=== PATIENT | male | born 1985 | race Caucasian/White ===

== ENCOUNTER 2017-10-17 20:26 | Emergency (ER) | payer MEDICAID, SELFPAY ==
[2017-10-17 20:28] VITALS: BP 144/97; PULSE 97; RESP 14; TEMP 37.1; O2SAT 95
[2017-10-17] MEDS: oxyCODONE 5 MG Tablet PO ×3 (22:20→23:05)
[2017-10-17 22:34] LABS: Absolute Lymphocyte Count 0.82 X10^3/ul (0.83-4.51); Absolute Neutrophil Count 9.6 X10^3/uL (2.0-7.7); Basophil# 0.02 X10^3/uL; Basophil% 0.2 % (0-1); Hematocrit 47.1 % (40-54); Hemoglobin 15.7 g/dl (13.0-16.5); Lymphocyte # 0.82 X10^3/ul (4.0); Lymphocyte % 7.7 % (19-41); Mean Corp Hgb Conc 33.3 g/gl (32-36); Mean Corpuscular Hgb 30.4 pg (27.0-32.0); Mean Corpuscular Volume 91.1 fL (80-94); Mean Platelet Vol. 10.8 fl (6.2-12.0); Monocyte# 0.18 X10^3/uL; Monocyte% 1.7 % (0-10); Neutrophil # 9.61 X10^3/uL (2.7-7.7); Neutrophil % 90.3 % (47-70); POSITIVE COUNT NO; POSITIVE DIFFERENTIAL NO; POSITIVE MORPHOLOGY NO; Platelet Count 243 K/mm3 (150-450); RBC Distribution Width CV 13.5 % (11.6-14.6); RBC Distribution Width SD 44.9 fl (35.1-43.9); Red Blood Count 5.17 M/mm3 (4.6-6.2); White Blood Count 10.6 K/mm3 (4.4-11.0)
--- NOTE | 2017-10-17 22:50 | ED.DCSUM_ITS ---
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 Patient has had impacted teeth that have been bothering him over the last several months. He was in an oral surgeon today to have them extracted in [place]. The procedure was started with the patient developed right facial swelling and the procedure was aborted. Patient complains of dental pain and continued right sided facial swelling. The swelling has not worsened over the last 8 hours. Family also felt they noted a few petechiae and were concerned about his platelet count. He follows with a specialist in [place] for his John syndrome. Physical Examination: Vital signs are unremarkable. Patient is in no acute distress. Head neck examination reveals right facial swelling over the maxilla only. This appears to be consistent with a hematoma. There is no crepitus noted. Intraoral examination reveals tenderness over his molars. There is no significant gum edema or sign of infection. Heart is regular rate and rhythm. Lung sounds are grossly clear. Abdomen is soft nontender. Test Results: CBC is obtained. Hemoglobin is normal. Platelet count is normal at 243,000. Emergency Department Course and Treatment: Patient was given oxycodone for pain. Test results were discussed with patient and at bedside. He will be given a short course of oxycodone for pain. Treatment Plan: [] Disposition: Discharge Impression: Odontalgia Facial swelling consistent with hematoma John syndrome This note was generated with [employer] dictation software. It may contain incorrect words, spelling, and punctuation that were not noted in review of the chart prior to signing ED Disposition - Plan for ED Patient: Disposition: Home or Assisted Living Chief Complaint: Dental Instructions: ED Tooth Pain Prescriptions: Oxycodone HCl/Acetaminophen [Percocet 5/325] 1 tablet PO Q6H PRN PRN 4 Days #12 tablet PRN Reason: Pain Referrals: Ed Thomas MD [Primary Care Provider] -
[2017-10-17 23:09] VITALS: RESP 16
== END 2017-10-17 23:09 | disposition home or self-care (01) ==
PROVIDERS: Emergency Provider Emergency Medicine; Family Provider Internal Medicine; PCP Internal Medicine
DX: K08.89 Other specified disorders of teeth and supporting structures (principal); R22.0 Localized swelling, mass and lump, head; D69.41 Evans syndrome; M79.7 Fibromyalgia; Z98.818 Other dental procedure status; Z79.899 Other long term (current) drug therapy
CPT/HCPCS: 85025; 99284; A4216

== ENCOUNTER 2018-06-02 20:41 | Emergency (ER) | payer MEDICAID, SELFPAY ==
[2018-06-02 20:42] VITALS: BP 133/86; PULSE 72; RESP 16; TEMP 37.1; O2SAT 97; BMI 21.2
--- NOTE | 2018-06-02 21:12 | US_ITS ---
STUDY: SCROTUM ULTRASOUND REASON FOR EXAM: Male, 32 years old. Pain. TECHNIQUE: Ultrasound evaluation of the scrotum was performed with color Doppler and static caraballo-scale imaging. COMPARISON: None. FINDINGS: RIGHT TESTICLE INTRATESTICULAR: There is a normal size of the right testicle. The right testicle measures 3.6 x 2.6 x 2.5 cm. There is a homogenous echotexture. There is normal arterial and normal venous vascularity. There is no demonstrated right testicular mass or cyst. EXTRATESTICULAR: The epididymis is normal in size. There is normal vascularity of the epididymis. There is no demonstrated epididymal cystic structure. There is no demonstrated hydrocele. There is no demonstrated varicocele. There is no demonstrated extratesticular mass or cyst. LEFT TESTICLE INTRATESTICULAR: There is a normal size of the left testicle. The left testicle measures 4.0 x 2.3 x 2.3 cm. There is a homogenous echotexture. There is normal arterial and normal venous vascularity. There is no demonstrated left testicular mass or cyst. EXTRATESTICULAR: The epididymis is normal in size. There is normal vascularity of the epididymis. There is no demonstrated epididymal cystic structure. There is no demonstrated hydrocele. There is no demonstrated varicocele. There is no demonstrated extratesticular mass or cyst. US/Testicular with Arterial Flow IMPRESSION: Within normal limits bilateral testicles. Electronically Signed: Sue Marlow MD at 23:16 EST Tel , Service support ,
--- NOTE | 2018-06-02 21:13 | CT_ITS ---
STUDY: CT ABDOMEN AND PELVIS WITH CONTRAST REASON FOR EXAM: Male, 32 years old. Testicular pain into abdomen RADIATION DOSAGE (If Supplied By Facility): CTDIvol = ( 10.38 ) mGy, DLP = ( 341.66 ) mGycm TECHNIQUE: Transaxial 3.75 mm images were obtained from the dome of the diaphragm to the symphysis pubis with oral contrast. 100 ml of Isovue 300 contrast was administered. Sagittal and coronal images were reconstructed. Individualized dose optimization techniques were used for this CT. COMPARISON: CT abdomen and pelvis 07/05/2017. 08/30/2016. 02/27/2015. FINDINGS: The visualized lung bases are unremarkable. The visualized portions of the heart are within normal limits. There is low attenuation along the falciform ligament most consistent with focal fatty sparing. There is a stable solitary gallstone position close to the gallbladder neck without wall thickening. Surgically absent spleen. Normal pancreas. Normal bilateral adrenal glands. There is no obstructive uropathy, obstructive renal or ureteral calculi. Subcentimeter cortical low attenuation left anterior mid kidney is stable . Normal visualized stomach. Normal small intestine. Normal colon. The appendix is visualized and appears normal. Normal abdominal aorta. Normal inferior vena cava. Normal retroperitoneum. Normal urinary bladder. Normal abdominal wall. Normal osseous structures. CT/Abdomen/Pelvis WITH Contrast IMPRESSION: There is no obstructive uropathy, obstructive renal or ureteral calculi. Normal appendix. Stable cholelithiasis, splenectomy and presumed left mid renal tiny cyst. Electronically Signed: Kourtney Lira MD at 0:12 EST , Service support ,
[2018-06-02] MEDS: Ondansetron 4 MG/2 ML Vial IV (21:40)
[2018-06-02] MEDS: 0.9% Normal Saline 1,000 ML 1000 ML IV (21:40)
[2018-06-02] MEDS: Morphine 4 MG/ML Syringe IV (21:40)
[2018-06-02 21:41] LABS: Absolute Lymphocyte Count 7.08 X10^3/ul (0.83-4.51); Absolute Neutrophil Count 9.8 X10^3/uL (2.0-7.7); Basophil# 0.13 X10^3/uL; Basophil% 0.7 % (0-1); Eosinophil# 0.05 X10^3/uL; Eosinophils% 0.3 % (0-5); Hemoglobin 13.7 g/dl (13.0-16.5); Lymphocyte # 7.08 X10^3/ul (4.0); Lymphocyte % 37.6 % (19-41); Mean Corp Hgb Conc 33.4 g/gl (32-36); Mean Corpuscular Hgb 30.6 pg (27.0-32.0); Mean Corpuscular Volume 91.5 fL (80-94); Mean Platelet Vol. 9.9 fl (6.2-12.0); Monocyte# 1.74 X10^3/uL; Monocyte% 9.2 % (0-10); Neutrophil # 9.76 X10^3/uL (2.7-7.7); Neutrophil % 51.8 % (47-70); Platelet Count 251 K/mm3 (150-450); RBC Distribution Width CV 14.2 % (11.6-14.6); RBC Distribution Width SD 47.3 fl (35.1-43.9); Red Blood Count 4.48 M/mm3 (4.6-6.2); White Blood Count 18.8 K/mm3 (4.4-11.0)
[2018-06-02 21:43] LABS: Differential Indicated SCAN CRITERIA MET; POSITIVE COUNT NO; POSITIVE DIFFERENTIAL YES; POSITIVE MORPHOLOGY NO
[2018-06-02 21:49] LABS: Bacteria 0 SEEN /hpf (None Seen); Mucous, Urine 0 SEEN /hpf (<or=2+); Red Blood Cells-Urine 0 SEEN /hpf (0-5); White Blood Cells 0 SEEN /hpf (0-5)
[2018-06-02 21:52] LABS: Color, Urine Yellow (Yellow); Glucose, Dipstick Normal (Normal); Ketone-Dipstick Negative (Negative); Leukocyte Esterase-Dipstick Negative /ul (Negative); Nitrite-Dipstick Negative (Negative); Occult Blood-Urine Negative /ul (Negative); Protein-Dipstick Negative (Negative); Specific Gravity, Urine 1.015 (1.002-1.030); Urine Bilirubin Dipstick Negative (Negative); Urine Clarity Sl. Cloudy (Clear); Urine Urobilinogen Normal (Normal)
[2018-06-02 21:58] LABS: Squamous Epithelial Cells - UA 0-5 SEEN /hpf (0-5)
[2018-06-02 22:02] LABS: ALB/GLOB Ratio 1.3 RATIO (0.9-2.4); AST(SGOT) 20 U/L (15-37); Alanine Aminotransfer ALT/SGPT 24 U/L (16-61); Albumin, Serum 3.9 g/dL (3.2-5.0); Alkaline Phosphatase 72 U/L (45-117); Anion Gap 6 (5-15); BUN 15 mg/dL (7-18); BUN/Creat Ratio 17.7 RATIO (10-20); Calcium,Total 8.7 mg/dL (8.5-10.1); Chloride 104 mmol/L (98-107); Creatinine, Serum 0.85 mg/dL (0.70-1.30); EST Glomerular Filtration Rate 111 mL/min (>60); Est Glom Filt Rate - Afr Amer 135 mL/min (>60); Estimated Creatinine Clearance 102.46 ml/min; Glucose 103 mg/dL (74-106); Potassium 3.9 mmol/L (3.5-5.1); Protein, Total 6.9 g/dL (6.4-8.2); Sodium Level 138 mmol/L (136-145)
[2018-06-02 22:20] LABS: Platelet Estimate ADEQUATE (ADEQ)
[2018-06-02 22:21] LABS: Differential Comment SCANNED
[2018-06-02 22:27] LABS: Lactic Acid 1.3 mmol/L (0.4-2.0)
[2018-06-02 23:46] LABS: Chlamydia Trachomatis by PCR Negative (Negative); Neisserai gonorrhoeae by PCR Negative (Negative); Probe Check PASS; Sample Adequacy Control PASS; Specimen Processing Control PASS
--- NOTE | 2018-06-03 00:30 | ED.VISSUMM ---
- ER Visit Summary Date of Service: 06/03/18 Chief Complaint: Testicular pain History of Present Illness: The patient is a 32 M who presents for 1 day of severe pain in the right lower abdomen, back, testicle and thigh. Patient believes the pain is originating from the right testicle, as he felt a pop yesterday in his right groin at onset. It began suddenly while he was having intercourse. He has pain radiating into the right lower abdomen, the right lower back, the rectal layer area, the anterior thigh. Patient has a history of degenerative disc disease, John syndrome, and other autoimmune disorders. He is currently on prednisone. He has history of splenectomy. Patient denies any fever, chest pain, shortness of breath, dysuria, hematuria, frequency. He does have paresthesias in his bilateral legs but denies any weakness in the legs. Physical Examination: Vital signs: afebrile, hemodynamically stable, no hypoxia on room air General: well nourished, well developed, in no distress Skin: warm, dry, no rash, no pallor HEENT: normocephalic and atraumatic; PERRL, EOMI, moist mucous membranes Cardiovascular: regular rate and rhythm without murmurs, no peripheral edema, 2+ pulses all distal extremities Respiratory: No increased work of breathing, lungs are clear to auscultation bilaterally, no rales, rhonchi or wheezing Abdominal: Abdomen is soft, tender in the right lower quadrant, right lower back, right hemiscrotum without swelling or induration, with normoactive bowel sounds, voluntary guarding or rebound, no masses. Normal external genitalia without penile discharge. Normal cremasteric reflex. No hernia noted. MSK: Moves all extremities, no deformities, normal strength Neuro: Awake and alert, oriented ?4. No facial droop, sensation and motor function intact and symmetric Test Results: Abnormal Lab Results 06/02/18 06/02/18 06/02/18 21:32 21:32 21:32 WBC 18.8 H RBC 4.48 L Hgb 13.7 Hct 41.0 MCV 91.5 MCH 30.6 MCHC 33.4 RDW 14.2 RDW Differential 47.3 H Plt Count 251 MPV 9.9 Immature Gran % (Auto) 0.400 Neut % (Auto) 51.8 Lymph % (Auto) 37.6 [place] % (Auto) 9.2 Eos % (Auto) 0.3 Baso % (Auto) 0.7 Absolute Neuts (auto) 9.8 H Absolute Lymphs (auto) 7.08 H Total Counted Not Reportable Differential Comment SCANNED Diff Path Review May foll Platelet Estimate ADEQUATE Sodium 138 Potassium 3.9 Chloride 104 Carbon Dioxide 28.0 Anion Gap 6 BUN 15 Creatinine 0.85 Estim Creat Clear Calc 102.46 Est GFR (MDRD) Af Amer 135 Est GFR (MDRD) Non-Af 111 BUN/Creatinine Ratio 17.7 Glucose 103 Lactic Acid 1.3 Calcium 8.7 Total Bilirubin 0.30 AST 20 ALT 24 Alkaline Phosphatase 72 Total Protein 6.9 Albumin 3.9 Globulin 3.0 Albumin/Globulin Ratio 1.3 Urine Color Urine Clarity Urine pH Ur Specific [place] Urine Protein Urine Glucose (UA) Urine Ketones Urine Occult Blood Urine Nitrite Urine Bilirubin Urine Urobilinogen Ur Leukocyte Esterase Urine RBC Urine WBC Ur Squamous Epith Cells Urine Bacteria Urine Mucus Chlam trachomat DNA PCR N.gonorrhoeae DNA (PCR) 06/02/18 06/02/18 21:44 21:44 WBC RBC Hgb Hct MCV MCH MCHC RDW RDW Differential Plt Count MPV Immature Gran % (Auto) Neut % (Auto) Lymph % (Auto) [place] % (Auto) Eos % (Auto) Baso % (Auto) Absolute Neuts (auto) Absolute Lymphs (auto) Total Counted Differential Comment Diff Path Review Platelet Estimate Sodium Potassium Chloride Carbon Dioxide Anion Gap BUN Creatinine Estim Creat Clear Calc Est GFR (MDRD) Af Amer Est GFR (MDRD) Non-Af BUN/Creatinine Ratio Glucose Lactic Acid Calcium Total Bilirubin AST ALT Alkaline Phosphatase Total Protein Albumin Globulin Albumin/Globulin Ratio Urine Color Yellow Urine Clarity Sl. Cloudy Urine pH 8.0 Ur Specific [place] 1.015 Urine Protein Negative Urine Glucose (UA) Normal Urine Ketones Negative Urine Occult Blood Negative Urine Nitrite Negative Urine Bilirubin Negative Urine Urobilinogen Normal Ur Leukocyte Esterase Negative Urine RBC 0 SEEN Urine WBC 0 SEEN Ur Squamous Epith Cells 0-5 SEEN Urine Bacteria 0 SEEN Urine Mucus 0 SEEN Chlam trachomat DNA PCR Negative N.gonorrhoeae DNA (PCR) Negative Clinical Impression(s) from Imaging Studies Testicular Ultrasound 06/02/18 21:12 IMPRESSION: Within normal limits bilateral testicles. Electronically Signed: Sue Marlow MD at 23:16 EST Tel , Service support , Abdomen/Pelvis CT 06/02/18 21:13 IMPRESSION: There is no obstructive uropathy, obstructive renal or ureteral calculi. Normal appendix. Stable cholelithiasis, splenectomy and presumed left mid renal tiny cyst. Electronically Signed: Kourtney Lira MD at 0:12 EST , Service support , Medications Given Discontinued Medications Sodium Chloride () 1,000 mls @ 1,000 mls/hr IV .Q1H ONE Stop: 06/02/18 22:12 Last Admin: 06/02/18 21:40 Dose: 1,000 mls/hr Morphine Sulfate () 4 mg IV X1 ONE Stop: 06/02/18 21:14 Last Admin: 06/02/18 21:40 Dose: 4 mg Ondansetron HCl (Zofran) 4 mg IV X1 ONE Stop: 06/02/18 21:14 Last Admin: 06/02/18 21:40 Dose: 4 mg Emergency Department Course and Treatment: Patient presents appearing very uncomfortable and is complaining of pain originating from his right testicle, however his examination is more concerning for pain referred to the testicle as well as the lower abdomen and anterior thigh. It seems more of a radicular pain in nature. However given patient's severe abdominal tenderness and voluntary guarding, workup was performed including the abdomen and pelvis with contrast and a scrotal ultrasound. Scrotal ultrasound showed normal blood flow, no masses and no abnormalities. CT abdomen and pelvis showed a normal appendix and no acute process in the abdomen. Patient had a leukocytosis of 18.8, however he recently started prednisone. He showed no signs of anemia or thrombocytopenia. Urine was negative for infection. Lactate normal. GC and Chlamydia were negative. No electrolyte or renal derangements. Patient received morphine and Zofran as well as IV fluids. On reevaluation he was more comfortable. We discussed that his symptoms may be due to his degenerative back disease and seem more radicular in nature. Patient had no rash that would be concerning for zoster. because of this acute severe pain, Patient was given a prescription for Percocet. He is scheduled to receive an MRI of his spine as soon as he gets approval from insurance, and he will follow-up on this on Monday. We discussed red flag symptoms that should cause him to return immediately to the emergency department. Patient felt well enough to go home. He was discharged with his parents. Treatment Plan: [] Disposition: [] Impression: Right lumbosacral radicular pain This note was generated with [employer] dictation software. It may contain incorrect words, spelling, and punctuation that were not noted in review of the chart prior to signing ED Disposition - Plan for ED Patient: Disposition: Home or Assisted Living Chief Complaint: Male Pain/Injury Instructions: ED Back Care Tips Prescriptions: Oxycodone HCl/Acetaminophen [Percocet 5/325] 1 tab PO Q6H PRN PRN 3 Days #12 tab PRN Reason: Pain Referrals: Ed Thomas MD [Primary Care Provider] - 1-2 Days if not improving Additional Instructions: Please follow-up on Monday with your spine doctor to see if you can schedule your MRI. You may use Percocet for severe pain, but do not mix it with gabapentin. If you develop inability to control your bowels or bladder, weakness in your legs, fever, or any changes in your medical condition that concern you, return immediately to the emergency department for another evaluation.
--- NOTE | 2018-06-03 00:37 | ED.DCSUM_ITS ---
- ER Visit Summary Date of Service: 06/03/18 Chief Complaint: Testicular pain History of Present Illness: The patient is a 32 M who presents for 1 day of severe pain in the right lower abdomen, back, testicle and thigh. Patient believes the pain is originating from the right testicle, as he felt a pop ye sterday in his right groin at onset. It began suddenly while he was having intercourse. He has pain radiating into the right lower abdomen, the right lower back, the rectal layer area, the anterior thigh. Patient has a history of degenerative disc disease, John syndrome, and other autoimmune disorders. He is currently on prednisone. He has history of splenectomy. Patient denies any fever, chest pain, shortness of breath, dysuria, hematuria, frequency. He does have paresthesias in his bilateral legs but denies any weakness in the legs. Physical Examination: Vital signs: afebrile, hemodynamically stable, no hypoxia on room air General: well nourished, well developed, in no distress Skin: warm, dry, no rash, no pallor HEENT: normocephalic and atraumatic; PERRL, EOMI, moist mucous membranes Cardiovascular: regular rate and rhythm without murmurs, no peripheral edema, 2+ pulses all distal extremities Respiratory: No increased work of breathing, lungs are clear to auscultation bilaterally, no rales, rhonchi or wheezing Abdominal: Abdomen is soft, tender in the right lower quadrant, right lower back, right hemiscrotum without swelling or induration, with normoactive bowel sounds, voluntary guarding or rebound, no masses. Normal external genitalia without penile discharge. Normal cremasteric reflex. No hernia noted. MSK: Moves all extremities, no deformities, normal strength Neuro: Awake and alert, oriented ?4. No facial droop, sensation and motor function intact and symmetric Test Results: Abnormal Lab Results 06/02/18 06/02/18 06/02/18 21:32 21:32 21:32 WBC 18.8 H RBC 4.48 L Hgb 13.7 Hct 41.0 MCV 91.5 MCH 30.6 MCHC 33.4 RDW 14.2 RDW Differential 47.3 H Plt Count 251 MPV 9.9 Immature Gran % (Auto) 0.400 Neut % (Auto) 51.8 Lymph % (Auto) 37.6 [place] % (Auto) 9.2 Eos % (Auto) 0.3 Baso % (Auto) 0.7 Absolute Neuts (auto) 9.8 H Absolute Lymphs (auto) 7.08 H Total Counted Not Reportable Differential Comment SCANNED Diff Path Review May foll Platelet Estimate ADEQUATE Sodium 138 Potassium 3.9 Chloride 104 Carbon Dioxide 28.0 Anion Gap 6 BUN 15 Creatinine 0.85 Estim Creat Clear Calc 102.46 Est GFR (MDRD) Af Amer 135 Est GFR (MDRD) Non-Af 111 BUN/Creatinine Ratio 17.7 Glucose 103 Lactic Acid 1.3 Calcium 8.7 Total Bilirubin 0.30 AST 20 ALT 24 Alkaline Phosphatase 72 Total Protein 6.9 Albumin 3.9 Globulin 3.0 Albumin/Globulin Ratio 1.3 Urine Color Urine Clarity Urine pH Ur Specific [place] Urine Protein Urine Glucose (UA) Urine Ketones Urine Occult Blood Urine Nitrite Urine Bilirubin Urine Urobilinogen Ur Leukocyte Esterase Urine RBC Urine WBC Ur Squamous Epith Cells Urine Bacteria Urine Mucus Chlam trachomat DNA PCR N.gonorrhoeae DNA (PCR) 06/02/18 06/02/18 21:44 21:44 WBC RBC Hgb Hct MCV MCH MCHC RDW RDW Differential Plt Count MPV Immature Gran % (Auto) Neut % (Auto) Lymph % (Auto) [place] % (Auto) Eos % (Auto) Baso % (Auto) Absolute Neuts (auto) Absolute Lymphs (auto) Total Counted Differential Comment Diff Path Review Platelet Estimate Sodium Potassium Chloride Carbon Dioxide Anion Gap BUN Creatinine Estim Creat Clear Calc Est GFR (MDRD) Af Amer Est GFR (MDRD) Non-Af BUN/Creatinine Ratio Glucose Lactic Acid Calcium Total Bilirubin AST ALT Alkaline Phosphatase Total Protein Albumin Globulin Albumin/Globulin Ratio Urine Color Yellow Urine Clarity Sl. Cloudy Urine pH 8.0 Ur Specific [place] 1.015 Urine Protein Negative Urine Glucose (UA) Normal Urine Ketones Negative Urine Occult Blood Negative Urine Nitrite Negative Urine Bilirubin Negative Urine Urobilinogen Normal Ur Leukocyte Esterase Negative Urine RBC 0 SEEN Urine WBC 0 SEEN Ur Squamous Epith Cells 0-5 SEEN Urine Bacteria 0 SEEN Urine Mucus 0 SEEN Chlam trachomat DNA PCR Negative N.gonorrhoeae DNA (PCR) Negative Clinical Impression(s) from Imaging Studies Testicular Ultrasound 06/02/18 21:12 IMPRESSION: Within normal limits bilateral testicles. Electronically Signed: Sue Marlow MD at 23:16 EST Tel , Service support , Abdomen/Pelvis CT 06/02/18 21:13 IMPRESSION: There is no obstructive uropathy, obstructive renal or ureteral calculi. Normal appendix. Stable cholelithiasis, splenectomy and presumed left mid renal tiny cyst. Electronically Signed: Kourtney Lira MD at 0:12 EST , Service support , Medications Given Discontinued Medications Sodium Chloride () 1,000 mls @ 1,000 mls/hr IV .Q1H ONE Stop: 06/02/18 22:12 Last Admin: 06/02/18 21:40 Dose: 1,000 mls/hr Morphine Sulfate () 4 mg IV X1 ONE Stop: 06/02/18 21:14 Last Admin: 06/02/18 21:40 Dose: 4 mg Ondansetron HCl (Zofran) 4 mg IV X1 ONE Stop: 06/02/18 21:14 Last Admin: 06/02/18 21:40 Dose: 4 mg Emergency Department Course and Treatment: Patient presents appearing very uncomfortable and is complaining of pain originating from his right testicle, however his examination is more concerning for pain referred to the testicle as well as the lower abdomen and anterior thigh. It seems more of a radicular pain in nature. However given patient's severe abdominal tenderness and voluntary guarding, workup was performed including the abdomen and pelvis with contrast and a scrotal ultrasound. Scrotal ultrasound showed normal blood flow, no masses and no abnormalities. CT abdomen and pelvis showed a normal appendix and no acute process in the abdomen. Patient had a leukocytosis of 18.8, however he recently started prednisone. He showed no signs of anemia or thrombocytopenia. Urine was negative for infection. Lactate normal. GC and Chlamydia were negative. No electrolyte or renal derangements. Patient received morphine and Zofran as well as IV fluids. On reevaluation he was more comfortable. We discussed that his symptoms may be due to his degenerative back disease and seem more radicular in nature. Patient had no rash that would be concerning for zoster. because of this acute severe pain, Patient was given a prescription for Percocet. He is scheduled to receive an MRI of his spine as soon as he gets approval from insurance, and he will follow-up on this on Monday. We discussed red flag symptoms that should cause him to return immediately to the emergency department. Patient felt well enough to go home. He was discharged with his parents. Treatment Plan: [] Disposition: [] Impression: Right lumbosacral radicular pain This note was generated with [employer] dictation software. It may contain incorrect words, spelling, and punctuation that were not noted in review of the chart prior to signing ED Disposition - Plan for ED Patient: Disposition: Home or Assisted Living Chief Complaint: Male Pain/Injury Instructions: ED Back Care Tips Prescriptions: Oxycodone HCl/Acetaminophen [Percocet 5/325] 1 tab PO Q6H PRN PRN 3 Days #12 tab PRN Reason: Pain Referrals: Ed Thomas MD [Primary Care Provider] - 1-2 Days if not improving Additional Instructions: Please follow-up on Monday with your spine doctor to see if you can schedule your MRI. You may use Percocet for severe pain, but do not mix it with gabapentin. If you develop inability to control your bowels or bladder, weakness in your legs, fever, or any changes in your medical condition that concern you, return immediately to the emergency department for another evaluation.
[2018-06-03 00:54] VITALS: BP 131/74; PULSE 62; RESP 15; O2SAT 97
[2018-06-04 11:54] LABS: Pathologist Review Reviewed
== END 2018-06-03 00:56 | disposition home or self-care (01) ==
PROVIDERS: Emergency Provider Emergency Medicine; Family Provider Internal Medicine; PCP Internal Medicine
DX: M54.17 Radiculopathy, lumbosacral region (principal); D69.41 Evans syndrome; Z90.81 Acquired absence of spleen; Z79.52 Long term (current) use of systemic steroids
CPT/HCPCS: 74177; 76870; 80053; 81001; 83605; 85025; 87491; 87591; 93976; 96361; 96374; 96375; 99283; J7030; Q9967; A4216; J2405

== ENCOUNTER 2018-06-08 19:08 | Emergency (ER) | payer MEDICAID, SELFPAY ==
[2018-06-08 19:09] VITALS: BP 120/90; PULSE 85; RESP 16; TEMP 37.4; O2SAT 99; BMI 21.1
--- NOTE | 2018-06-08 19:31 | ED.VISSUMM ---
- ER Visit Summary Date of Service: 06/08/18 Chief Complaint: Cough, ear pain History of Present Illness: The patient is a 32 M with cough and congestion for the past 1 week. He reports having right ear aching for the past couple of days. He had increased right ear pain after waking from a nap this afternoon. He has had mild drainage from his right ear today. He does report family members are ill with similar symptoms. Physical Examination: Vital signs significant for temperature 99.4, otherwise unremarkable. Patient sitting upright in bed. He appears ill but not toxic. Head and neck examination reveals left TM to be clear. Right TM reveals a small perforation with pus and air bubbles behind the eardrum. There are a few mild areas of irritation, but no active bleeding. Heart is regular rate and rhythm. Lung sounds are clear. Abdomen is soft and nontender. Test Results: [] Emergency Department Course and Treatment: Patient is treated with Augmentin and a dose of [place]. We discussed possibility of chest x-ray, however antibiotic use to cover his ear will also cover her lungs. We will not subject him to the radiation. He is referred to Dr. Dykes for follow-up. Treatment Plan: [] Disposition: Discharge Impression: Right otitis media with perforation This note was generated with [employer] dictation software. It may contain incorrect words, spelling, and punctuation that were not noted in review of the chart prior to signing ED Disposition - Plan for ED Patient: Disposition: Home or Assisted Living Chief Complaint: Ear Problem Instructions: ED Rupture Eardrum Infec Prescriptions: Hydrocodone Bitart/Apap 5-325 [[place] 5MG-325MG] 1 tablet PO Q4H PRN PRN 2 Days #10 tablet PRN Reason: Pain Amox/Clavulanate Tablet [Augmentin Tablet] 875 mg PO Q12H #20 tablet Referrals: Nick Dykes MD [STAFF PHYSICIAN] - As soon as possible Ed Thomas MD [Primary Care Provider] -
--- NOTE | 2018-06-08 19:33 | DCINST.ED_ITS ---
ED Disposition - Plan for ED Patient: Disposition: Home or Assisted Living Chief Complaint: Ear Problem Instructions: ED Rupture Eardrum Infec Prescriptions: Hydrocodone Bitart/Apap 5-325 [[place] 5MG-325MG] 1 tablet PO Q4H PRN PRN 2 Days #10 tablet PRN Reason: Pain Amox/Clavulanate Tablet [Augmentin Tablet] 875 mg PO Q12H #20 tablet Referrals: Ed Thomas MD [Primary Care Provider] - Nick Dykes MD [STAFF PHYSICIAN] - As soon as possible
[2018-06-08] MEDS: HYDROcodone Bitartrate/Apap 5/325 Tablet PO (19:38)
[2018-06-08] MEDS: Amox/Clavulanate 875 MG Tablet PO (19:38)
--- OUTSIDE RECORDS SUMMARY | 2018-08-03 17:04 | XMS RPT_ITS ---
:1985 Author Organization OHIP Care Team Providers Name Role Phone Carlos Cat Attending Unavailable Ed Thomas Primary Care Unavailable Ed Thomas Primary Care Unavailable Raya Mabry Attending Unavailable Ed Thomas Primary Care Unavailable Renee Kenney Attending Unavailable Ed Thomas Primary Care Unavailable Raya Mabry Attending Unavailable Ed Thomas Primary Care Unavailable Marsha Kim Attending Unavailable ED THOMAS Attending Unavailable BEATA LOJA (BAROMETERS CALIBRATOR) Attending Unavailable KAREN EATON Referring Unavailable KAREN EATON Referring Unavailable PRIETOSHANA KINNEY Attending Unavailable BEATA LOJA (BAROMETERS CALIBRATOR) Referring Unavailable PRIETO, SHANA T Admitting Unavailable PRIETO, SHANA T Attending Unavailable PRIETO, SHANA T Referring Unavailable ANDREW BYRNES (PT) Attending Unavailable WESLEY MEZA Referring Unavailable PRIETO, SHANA Chairez Referring Unavailable KIMBER ANDERSON (PA) Attending Unavailable NEO BANKS Attending Unavailable QUIANA RENDON Attending Unavailable QUIANA RENDON Referring Unavailable BEATA LOJA (BAROMETERS CALIBRATOR) Referring Unavailable ED THOMAS Attending Unavailable PRIETO, SHANA Chairez Admitting Unavailable PRIETO, SHANA T Attending Unavailable WESLEY FERNANDEZ Attending Unavailable KIMBER ANDERSON (PA) Referring Unavailable WESLEY FERNANDEZ Referring Unavailable Bev FERNANDEZ Attending Unavailable Ed Thomas MD Primary Care Unavailable KIMBER ANDERSON Referring Unavailable Bev FERNANDEZ Referring Unavailable Ed Thomas MD Primary Care Unavailable PROBLEMS PROBLEMS DATE TYPE CONDITION / CODE ATTENDING STATUS SOURCE 06/08/2018 Unknown H66.019 - Acute Mabry, Raya Active [facility] suppurative otitis [facility] media with Hospital spontaneous rupture Repository of ear drum, unspecified ear / H66.019(ICD-10) 06/03/2018 Unknown M54.17 - Renee Kenney Active [facility] Radiculopathy, Community lumbosacral region Hospital / M54.17(ICD-10) Repository 06/03/2018 Unknown R10.9 - Unspecified PablitoRenee Active [facility] abdominal pain / Community R10.9(ICD-10) Hospital Repository 12/12/2017 Active Unspecified NA Active [facility] abdominal pain / Clinic Main R10.9(ICD-10) [facility] Repository 12/12/2017 Active Nausea / NA Active [facility] R11.0(ICD-10) Clinic Main [place] [facility] Repository 12/12/2017 Active Left upper quadrant NA Active [facility] pain / Clinic Main R10.12(ICD-10) [facility] Repository 12/12/2017 Active Other chronic pain NA Active [facility] / G89.29(ICD-10) Clinic Main [place] [facility] Repository 12/12/2017 Active Pain in right hip / NA Active [facility] M25.551(ICD-10) Clinic Main [place] [facility] Repository 11/08/2017 Active Calculus of JONAHHER WESLEY Active [facility] gallbladder without [facility] Clinic Other cholecystitis [facility] without obstruction Repository / K80.20(ICD-10) 11/08/2017 Active Gastro-esophageal WESLEY FERNANDEZ Active [facility] reflux disease with [facility] Clinic Other esophagitis / [facility] K21.0(ICD-10) Repository 11/08/2017 Admitting Unknown / Bev FERNANDEZ Active [facility] General diagnosis UNK(Unknown) [facility] Repository 10/18/2017 Unknown K08.89 - Other Raya Mabry [place] [facility] [place] [facility] [place] / K08.89(ICD-10) 09/27/2017 Active John syndrome / NEO BANKS Active [facility] D69.41(ICD-10) [facility] Main [place] [facility] Repository 08/15/2017 Active Right upper PRIETO, Active [facility] quadrant pain / SHANA T Clinic Other R10.11(ICD-10) [facility] Repository PROCEDURES PROCEDURES No Procedure Records FoundRESULTS RESULTS EMERGENCY DEPARTMENT Observed: 06/12/2018 Status: F Source: [place] SUMMARY 11:43 PM [facility] REPOSITORY [facility] Medical Records Department [address] [place] [address] Emergency Department Summary 06/12/181916 MR#: [id number] Acct: [id number] Name: RAEANN RODRIGUEZ II Rep #: [id number] : 1985 32 From: Marsha Kim MD PCP: Ed Thomas MD Status: DEP ER 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 that apparently has been stable, he also reports he has fibromyalgia arthritis and other medical conditions that cause whole body pain, he indicates he developed what sounds like a URI than an ear infection right ear he indicates he believes he had a rupture of the eardrum was seen in the emergency department a few days ago treated for that with IV fluids as well as the whole body pain he is taking his amoxicillin but he reports he still having diffuse whole body pain he cannot tolerate this anymore, indicates again his John syndrome is stable 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, 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, at the [facility], he was transferred to [facility] subspecialist and has been seeing them 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, he also has arthritis he believes he has lumbar or cervical disc disease In case of any type of an illness triggers whole-body diffuse pain he has had multiple times in the past the exact etiology of that is unclear he usually is treated with IV fluids and sometimes he indicates he requires admission Physical Examination: [] 140/72, he is afebrile General, no distress he is simply complained that his entire body every bone in his body hurts nothing specific no focality HEENT is generally unremarkable, his right TM appears to have a TM rupture but no drainage or signs of infection or anything acute The neck is supple no adenopathy Cardiovascular, regular rate and rhythm Lungs, clear bilateral Abdomen, soft nontender Extremities, no clubbing cyanosis or edema full range of motion no Kernig's or Brudzinski's Neurologic, awake alert answering questions appropriately moving all 4 extremities his neck is very supple he is awake alert answering questions appropriately, his NIH is 0 Test Results: [] Emergency Department Course and Treatment: [] Given his age his complaints of the above will obtain screening labs IV fluids pain management and reevaluate Patient's lab studies are all generally generally unremarkable please see those reports on reevaluation he is resting comfortably in bed states he feels slightly better He expresses quite a bit of frustration as to the fact that no one will manage his pain and no one will believe that this is his John syndrome, I explained to him at this time there does not appear to anything life-threatening or acute he did a very competent evaluation through the emergency department, after further conversation with him he has been seen by multiple outpatient providers as above he is even been seen by different pain management team for over 4 years he recently switched to the [facility] pain management team and he reports partial improvement of his chronic pain with them This time he feels well for discharge she is comfortable discharge home I explained to him that the emergency department cannot further manage his pain he must obtain his pain management and further ongoing therapy through his outpatient providers and again he went through a long list of outpatient providers he seen as above and he was instructed to follow back up with them and return for change in symptoms Treatment Plan: [] Disposition: [] Home stable Impression: [] Diffuse whole body pain etiology unclear reported history of John syndrome This note was generated with [employer] dictation software. It may contain incorrect words, spelling, and punctuation that were not noted in review of the chart prior to signing ED Disposition - Plan for ED Patient: Chief Complaint: General Illness Referrals: Ed Thomas MD [Primary Care Provider] - What to do if you have Problems For any increased pain, shortness of breath, bleeding, nausea or vomiting, chest pain, or any unexpected problems, contact your Primary Care Provider. Call [facility] ([phone]) or report to the closest Emergency Room. Call 911 if necessary. 06/12/18 2343 <Electronically signed by Marsha Kim MD> Date Marsha Kim MD Cosigner Signature (If Indicated): Date CC: Ed Thomas MD DISCHARGE INSTRUCTION Observed: 06/12/2018 Status: F Source: [place] 8:47 PM [facility] REPOSITORY [facility] Medical Records Department [address] [place] [address] Discharge Instruction 06/12/182045 MR#: [id number] Acct: [id number] Name: RAEANN RODRIGUEZ SCOTT Rep #: [id number] : 1985 32 From: Marsha Kim MD PCP: Ed Thomas MD Status: REG ER ED Disposition - Plan for ED Patient: Chief Complaint: General Illness Instructions: What is Rheumatoid Arthritis?, What Is Arthritis? Referrals: Ed Thomas MD [Primary Care Provider] - What to do if you have Problems For any increased pain, shortness of breath, bleeding, nausea or vomiting, chest pain, or any unexpected problems, contact your Primary Care Provider. Call [facility] ([phone]) or report to the closest Emergency Room. Call 911 if necessary. 06/12/182046 <Electronically signed by Marsha Kim MD> Date Marsha Kim MD Cosigner Signature (If Indicated): Date CC: Ed Thomas MD URINALYSIS, COMPLETE Collected: 06/12/2018 Status: F Source: [place] 8:11 PM [facility] REPOSITORY Order Comment: Order Date: 06/12/18 Has pt arrived? Y How was Urine Obtained? [employer] MA[employer] TO SPECIFY TYPE CODE TESTS RESULT OUT OF RANGE REFERENCE UNITS LAB L400.3000 Yellow COLOR Normal Yellow LAB L400.3050 Clear Normal CLARITY Clear LAB L400.3200 Normal mg/dl Normal GLUCOSE, UR Normal LAB L400.3300 Negative mg/dL Normal BILIRUBIN URINE Negative LAB L400.3400 Negative mg/dl High 5 KETONE UR LAB L400.3465 1.002-1.030 Normal SP.GR. DIPSTX 1.010 LAB L400.3550 5.0 - 8.0 pH UR Normal 8.0 LAB L400.3600 Negative mg/dl PROT Normal DIPSTX Negative LAB L400.3700 Normal mg/dl High 1 UROBILI LAB L400.3750 Negative Normal NITRITE UR Negative LAB L400.3780 Negative /ul Normal OCCULT BLOOD-UR Negative LAB L400.3800 Negative /ul High LEUK ESTERASE 100 LAB L400.4050 0-5 /hpf WBC 0 Normal SEEN LAB L400.4100 0-5 /hpf 0 Normal RBC-UA SEEN LAB L400.4150 0-5 /hpf SQUAM 0 Normal EPI SEEN LAB L400.4300 None Seen /hpf 0 Normal BACTERIA SEEN LAB L400.4350 <or=2+ /hpf 0 Normal MUCUS, URINE SEEN Performed By: #### L400.0001 #### [facility] [address] [place], [address] CBC W/DIFF, AUTOMATED Collected: 06/12/2018 Status: F Source: [place] 7:30 PM [facility] REPOSITORY TYPE CODE TESTS RESULT OUT OF RANGE REFERENCE UNITS LAB L100.1000 4.4-11.0 K/mm3 High WBC 12.9 LAB L100.1200 4.6-6.2 M/mm3 Normal RBC 5.31 LAB L100.1300 13.0-16.5 g/dl High HGB 16.7 LAB L100.1400 40-54 % Normal HCT 49.4 LAB L100.1500 80-94 fL Normal MCV 93.0 LAB L100.1600 27.0-32.0 pg Normal MCH 31.5 LAB L100.1700 32-36 g/gl Normal MCHC 33.8 LAB L100.1810 11.6-14.6 % Normal RDW CV 14.5 LAB L100.1820 35.1-43.9 fl High RDW SD 48.4 LAB L100.1900 150-450 K/mm3 Normal PLT 222 LAB L100.2000 6.2-12.0 fl Normal MPV 10.4 LAB L100.2100 47-70 % Normal NEUT% 57.4 LAB L100.2200 19-41 % Normal LY% 31.8 LAB L100.2300 0-10 % Normal MONO% 9.2 LAB L100.2400 0-5 % Normal EO% 0.5 LAB L100.2500 0-1 % Normal BASO% 0.8 LAB L100.2550 0.0-0.9 % Normal IM GRAN % 0.300 Result Comment: IG% - Immature Granulocytes (promyelocytes, myelocytes and metamyelocytes) > 1% indicates that a LEFT SHIFT is Present. LAB L100.2620 2.0-7.7 X10 3/uL Normal Absolute Neut 7.4 LAB L100.2720 0.83-4.51 X10 3/ul Normal Absolute Lymph 4.11 Performed By: #### L100.0100 #### [facility] [address] [place], [address] BASIC METABOLIC Collected: 06/12/2018 Status: F Source: [place] PROFILE (BMP) 7:30 PM [facility] REPOSITORY TYPE CODE TESTS RESULT OUT OF RANGE REFERENCE UNITS LAB L501.0100 74-106 mg/dL Normal GLU 93 Result Comment: Please note revised GLUCOSE reference range effective 2017. LAB L501.1000 7-18 mg/dL Normal BUN 14 LAB L501.1100 0.70-1.30 mg/dL Normal CREAT,SERUM 0.98 Result Comment: The validity of the calculated GFR AND GFRAA in patients over 70 years has not been determined. Clinical correlation is essential. LAB L501.1110 >60 mL/min Normal EST GFR 94 Result Comment: Non- GFR Calc LAB L501.1115 >60 mL/min Normal EST GFR - AA 114 Result Comment: GFR Calc LAB L501.1255 ml/min Normal Estimated CRCL 88.17 LAB L501.1300 10-20 RATIO Normal BUN/CRE 14.4 LAB L501.2200 8.5-10 mg/dL Normal .1 CA 9.0 LAB L501.5300 136-14 mmol/L Normal 5 NA 140 LAB L501.5600 3.5-5. mmol/L Normal 1 K 4.1 LAB L501.5900 98-107 mmol/L Normal CL 104 LAB L501.6100 21.0-3 mmol/L Normal 2.0 CO2 28.0 LAB L501.6200 5-15 Normal GAP 8 Performed By: #### L500.2500, L500.3400, L501.2450 #### [facility] [address] [place], [address] LIVER PROFILE Collected: 06/12/2018 Status: F Source: [place] 7:30 PM [facility] REPOSITORY TYPE CODE TESTS RESULT OUT OF RANGE REFERENCE UNITS LAB L501.1500 6.4-8.2 g/dL Normal T PROT 8.0 LAB L501.1800 3.2-5.0 g/dL Normal ALB 4.1 LAB L501.1950 2.2-4.2 g/dL Normal GLOB 3.9 LAB L501.4100 15-37 U/L Normal AST 29 LAB L501.4305 45-117 U/L Normal ALK P 70 LAB L501.4405 16-61 U/L Normal ALT 32 LAB L501.4600 0.20-1.00 mg/dL Normal T BILI 0.50 LAB L501.4700 0.00-0.30 mg/dL Normal D BILI 0.13 Performed By: #### L500.2500, L500.3400, L501.2450 #### [facility] [address] [place], [address] LIPASE Collected: 06/12/2018 Status: F Source: [place] 7:30 PM [facility] REPOSITORY TYPE CODE TESTS RESULT OUT OF RANGE REFERENCE UNITS LAB L501.2450 73-393 U/L Normal LIPASE 94 Performed By: #### L500.2500, L500.3400, L501.2450 #### [facility] [address] [place], [address] EMERGENCY DEPARTMENT Observed: 06/08/2018 Status: F Source: [place] SUMMARY 10:56 PM [facility] REPOSITORY [facility] Medical Records Department [address] [place] [address] Emergency Department Summary 06/08/18 1931 MR#: [id number] Acct: [id number] Name: RAEANN RODRIGUEZ II Rep #: [id number] : 1985 32 From: Raya Mabry MD PCP: Ed Thomas MD Status: DEP ER - ER Visit Summary Date of Service: 06/08/18 Chief Complaint: Cough, ear pain History of Present Illness: The patient is a 32 M with cough and congestion for the past 1 week. He reports having right ear aching for the past couple of days. He had increased right ear pain after waking from a nap this afternoon. He has had mild drainage from his right ear today. He does report family members are ill with similar symptoms. Physical Examination: Vital signs significant for temperature 99.4, otherwise unremarkable. Patient sitting upright in bed. He appears ill but not toxic. Head and neck examination reveals left TM to be clear. Right TM reveals a small perforation with pus and air bubbles behind the eardrum. There are a few mild areas of irritation, but no active bleeding. Heart is regular rate and rhythm. Lung sounds are clear. Abdomen is soft and nontender. Test Results: [] Emergency Department Course and Treatment: Patient is treated with Augmentin and a dose of [place]. We discussed possibility of chest x-ray, however antibiotic use to cover his ear will also cover her lungs. We will not subject him to the radiation. He is referred to Dr. Dykes for follow-up. Treatment Plan: [] Disposition: Discharge Impression: Right otitis media with perforation This note was generated with [employer] dictation software. It may contain incorrect words, spelling, and punctuation that were not noted in review of the chart prior to signing ED Disposition - Plan for ED Patient: Disposition: Home or Assisted Living Chief Complaint: Ear Problem Instructions: ED Rupture Eardrum Infec Prescriptions: Hydrocodone Bitart/Apap 5-325 [[place] 5MG-325MG] 1 tablet PO Q4H PRN PRN 2 Days #10 tablet PRN Reason: Pain Amox/Clavulanate Tablet [Augmentin Tablet] 875 mg PO Q12H #20 tablet Referrals: Nick Dykes MD [STAFF PHYSICIAN] - As soon as possible Ed Thomas MD [Primary Care Provider] - What to do if you have Problems For any increased pain, shortness of breath, bleeding, nausea or vomiting, chest pain, or any unexpected problems, contact your Primary Care Provider. Call [facility] ([phone]) or report to the closest Emergency Room. Call 911 if necessary. 06/08/18 8416 <Electronically signed by Raya Mabry MD> Date Raya Mabry MD Cosigner Signature (If Indicated): Date CC: Ed Thomas MD DISCHARGE INSTRUCTION Observed: 06/08/2018 Status: F Source: [place] 7:33 PM [facility] REPOSITORY [facility] Medical Records Department [address] [place] [address] Discharge Instruction 06/08/181930 MR#: [id number] Acct: [id number] Name: RAEANN RODRIGUEZ SCOTT Rep #: [id number] : 1985 32 From: Raya Mabry MD PCP: Ed Thomas MD Status: PRE ER ED Disposition - Plan for ED Patient: Disposition: Home or Assisted Living Chief Complaint: Ear Problem Instructions: ED Rupture Eardrum Infec Prescriptions: Hydrocodone Bitart/Apap 5-325 [[place] 5MG-325MG] 1 tablet PO Q4H PRN PRN 2 Days #10 tablet PRN Reason: Pain Amox/Clavulanate Tablet [Augmentin Tablet] 875 mg PO Q12H #20 tablet Referrals: Ed Thomas MD [Primary Care Provider] - Nick Dykes MD [STAFF PHYSICIAN] - As soon as possible What to do if you have Problems For any increased pain, shortness of breath, bleeding, nausea or vomiting, chest pain, or any unexpected problems, contact your Primary Care Provider. Call [facility] ([phone]) or report to the closest Emergency Room. Call 911 if necessary. 06/08/181932 <Electronically signed by Raya Mabry MD> Date Raya Mbary MD Cosigner Signature (If Indicated): Date CC: Ed Thomas MD EMERGENCY DEPARTMENT Observed: 06/03/2018 Status: F Source: [place] SUMMARY 1:43 AM [facility] REPOSITORY [facility] Medical Records Department [address] [place] [address] Emergency Department Summary 06/03/18 0030 MR#: [id number] Acct: [id number] Name: NISSA RODRIGUEZSMITHA SCRUGGS II Rep #: [id number] : 1985 32 From: Renee Kenney MD PCP: Ed Thomas MD Status: DEP ER - ER Visit Summary Date of Service: 06/03/18 Chief Complaint: Testicular pain History of Present Illness: The patient is a 32 M who presents for 1 day of severe pain in the right lower abdomen, back, testicle and thigh. Patient believes the pain is originating from the right testicle, as he felt a pop yesterday in his right groin at onset. It began suddenly while he was having intercourse. He has pain radiating into the right lower abdomen, the right lower back, the rectal layer area, the anterior thigh. Patient has a history of degenerative disc disease, John syndrome, and other autoimmune disorders. He is currently on prednisone. He has history of splenectomy. Patient denies any fever, chest pain, shortness of breath, dysuria, hematuria, frequency. He does have paresthesias in his bilateral legs but denies any weakness in the legs. Physical Examination: Vital signs: afebrile, hemodynamically stable, no hypoxia on room air General: well nourished, well developed, in no distress Skin: warm, dry, no rash, no pallor HEENT: normocephalic and atraumatic; PERRL, EOMI, moist mucous membranes Cardiovascular: regular rate and rhythm without murmurs, no peripheral edema, 2+ pulses all distal extremities Respiratory: No increased work of breathing, lungs are clear to auscultation bilaterally, no rales, rhonchi or wheezing Abdominal: Abdomen is soft, tender in the right lower quadrant, right lower back, right hemiscrotum without swelling or induration, with normoactive bowel sounds, voluntary guarding or rebound, no masses. Normal external genitalia without penile discharge. Normal cremasteric reflex. No hernia noted. MSK: Moves all extremities, no deformities, normal strength Neuro: Awake and alert, oriented 4. No facial droop, sensation and motor function intact and symmetric Test Results: Abnormal Lab Results WBC 18.8 H WBC RBC Hgb Hct MCV MCH MCHC RDW RDW Differential Clinical Impression(s) from Imaging Studies Testicular Ultrasound 06/02/18 21:12 IMPRESSION: Within normal limits bilateral testicles. Electronically Signed: Sue Marlow MD at 23:16 EST Tel , Service support , Abdomen/Pelvis CT 06/02/18 21:13 IMPRESSION: There is no obstructive uropathy, obstructive renal or ureteral calculi. Normal appendix. Stable cholelithiasis, splenectomy and presumed left mid renal tiny cyst. Electronically Signed: Kourtney Lira MD at 0:12 EST , Service support , Medications Given Discontinued Medications Sodium Chloride () 1,000 mls @ 1,000 mls/hr IV .Q1H ONE Stop: 06/02/18 22:12 Last Admin: 06/02/18 21:40 Dose: 1,000 mls/hr Morphine Sulfate () 4 mg IV X1 ONE Stop: 06/02/18 21:14 Last Admin: 06/02/18 21:40 Dose: 4 mg Ondansetron HCl (Zofran) 4 mg IV X1 ONE Stop: 06/02/18 21:14 Last Admin: 06/02/18 21:40 Dose: 4 mg Emergency Department Course and Treatment: Patient presents appearing very uncomfortable and is complaining of pain originating from his right testicle, however his examination is more concerning for pain referred to the testicle as well as the lower abdomen and anterior thigh. It seems more of a radicular pain in nature. However given patient's severe abdominal tenderness and voluntary guarding, workup was performed including the abdomen and pelvis with contrast and a scrotal ultrasound. Scrotal ultrasound showed normal blood flow, no masses and no abnormalities. CT abdomen and pelvis showed a normal appendix and no acute process in the abdomen. Patient had a leukocytosis of 18.8, however he recently started prednisone. He showed no signs of anemia or thrombocytopenia. Urine was negative for infection. Lactate normal. GC and Chlamydia were negative. No electrolyte or renal derangements. Patient received morphine and Zofran as well as IV fluids. On reevaluation he was more comfortable. We discussed that his symptoms may be due to his degenerative back disease and seem more radicular in nature. Patient had no rash that would be concerning for zoster. because of this acute severe pain, Patient was given a prescription for Percocet. He is scheduled to receive an MRI of his spine as soon as he gets approval from insurance, and he will follow-up on this on Monday. We discussed red flag symptoms that should cause him to return immediately to the emergency department. Patient felt well enough to go home. He was discharged with his parents. Treatment Plan: [] Disposition: [] Impression: Right lumbosacral radicular pain This note was generated with [employer] dictation software. It may contain incorrect words, spelling, and punctuation that were not noted in review of the chart prior to signing ED Disposition - Plan for ED Patient: Disposition: Home or Assisted Living Chief Complaint: Male Pain/Injury Instructions: ED Back Care Tips Prescriptions: Oxycodone HCl/Acetaminophen [Percocet 5/325] 1 tab PO Q6H PRN PRN 3 Days #12 tab PRN Reason: Pain Referrals: Ed Thomas MD [Primary Care Provider] - 1-2 Days if not improving Additional Instructions: Please follow-up on Monday with your spine doctor to see if you can schedule your MRI. You may use Percocet for severe pain, but do not mix it with gabapentin. If you develop inability to control your bowels or bladder, weakness in your legs, fever, or any changes in your medical condition that concern you, return immediately to the emergency department for another evaluation. What to do if you have Problems For any increased pain, shortness of breath, bleeding, nausea or vomiting, chest pain, or any unexpected problems, contact your Primary Care Provider. Call [facility] ([phone]) or report to the closest Emergency Room. Call 911 if necessary. 06/03/18 0143 <Electronically signed by Renee Kenney MD> Date Renee Kenney MD Cosigner Signature (If Indicated): Date CC: Ed Thomas MD DISCHARGE INSTRUCTION Observed: 06/03/2018 Status: F Source: [place] 1:05 AM [facility] HOSPITAL REPOSITORY [facility] Medical Records Department [address] [place] [address] Discharge Instruction 06/03/18 0037 MR#: [id number] Acct: [id number] Name: RAEANN RODRIGUEZ II Rep #: [id number] : 1985 32 From: Renee Kenney MD PCP: Ed Thomas MD Status: DEP ER ED Disposition - Plan for ED Patient: Disposition: Home or Assisted Living Chief Complaint: Male Pain/Injury Instructions: ED Back Care Tips Prescriptions: Oxycodone HCl/Acetaminophen [Percocet 5/325] 1 tab PO Q6H PRN PRN 3 Days #12 tab PRN Reason: Pain Referrals: Ed Thomas MD [Primary Care Provider] - 1-2 Days if not improving Additional Instructions: Please follow-up on Monday with your spine doctor to see if you can schedule your MRI. You may use Percocet for severe pain, but do not mix it with gabapentin. If you develop inability to control your bowels or bladder, weakness in your legs, fever, or any changes in your medical condition that concern you, return immediately to the emergency department for another evaluation. What to do if you have Problems For any increased pain, shortness of breath, bleeding, nausea or vomiting, chest pain, or any unexpected problems, contact your Primary Care Provider. Call [facility] ([phone]) or report to the closest Emergency Room. Call 911 if necessary. 06/03/18 0105 <Electronically signed by Renee Kenney MD> Date Renee Kenney MD Cosigner Signature (If Indicated): Date CC: Ed Thomas MD URINALYSIS, COMPLETE Collected: 06/02/2018 Status: F Source: [place] 9:44 PM [facility] REPOSITORY Order Comment: Order Date: 06/02/18 Has pt arrived? Y How was Urine Obtained? CLEAN CATCH TYPE CODE TESTS RESULT OUT OF RANGE REFERENCE UNITS LAB L400.3000 Yellow COLOR Normal Yellow LAB L400.3050 Clear Normal CLARITY Sl. Cloudy LAB L400.3200 Normal mg/dl Normal GLUCOSE, UR Normal LAB L400.3300 Negative mg/dL Normal BILIRUBIN URINE Negative LAB L400.3400 Negative mg/dl Normal KETONE UR Negative LAB L400.3465 1.002-1.030 Normal SP.GR. DIPSTX 1.015 LAB L400.3550 5.0 - 8.0 pH UR Normal 8.0 LAB L400.3600 Negative mg/dl PROT Normal DIPSTX Negative LAB L400.3700 Normal mg/dl Normal UROBILI Normal LAB L400.3750 Negative Normal NITRITE UR Negative LAB L400.3780 Negative /ul Normal OCCULT BLOOD-UR Negative LAB L400.3800 Negative /ul LEUK Normal ESTERASE Negative LAB L400.4050 0-5 /hpf WBC 0 Normal SEEN LAB L400.4100 0-5 /hpf 0 Normal RBC-UA SEEN LAB L400.4150 0-5 /hpf SQUAM Normal EPI 0-5 SEEN LAB L400.4300 None Seen /hpf 0 Normal BACTERIA SEEN LAB L400.4350 <or=2+ /hpf 0 Normal MUCUS, URINE SEEN Performed By: #### L400.0001 #### [facility] [address] [place], [place], [id number] CT/NG WCH BY PCR Collected: 06/02/2018 Status: F Source: [place] 9:44 PM [facility] REPOSITORY Order Comment: Order Date: 06/02/18 Has pt arrived? Y TYPE CODE TESTS RESULT OUT OF RANGE REFERENCE UNITS LAB L8200.2100 Negative Normal Chlam Negative Trac PCR LAB L8200.2200 Negative Normal NG by Negative PCR Performed By: #### L8200.2000 #### [facility] [address] [place], [place], [address] CBC W/DIFF, AUTOMATED Collected: 06/02/2018 Status: C Source: [place] 9:32 PM [facility] REPOSITORY TYPE CODE TESTS RESULT OUT OF RANGE REFERENCE UNITS LAB L100.1000 4.4-11.0 K/mm3 High WBC 18.8 LAB L100.1200 4.6-6.2 M/mm3 Low RBC 4.48 LAB L100.1300 13.0-16.5 g/dl Normal HGB 13.7 LAB L100.1400 40-54 % Normal HCT 41.0 LAB L100.1500 80-94 fL Normal MCV 91.5 LAB L100.1600 27.0-32.0 pg Normal MCH 30.6 LAB L100.1700 32-36 g/gl Normal MCHC 33.4 LAB L100.1810 11.6-14.6 % Normal RDW CV 14.2 LAB L100.1820 35.1-43.9 fl High RDW SD 47.3 LAB L100.1900 150-450 K/mm3 Normal PLT 251 LAB L100.2000 6.2-12.0 fl Normal MPV 9.9 LAB L100.2100 47-70 % Normal NEUT% 51.8 LAB L100.2200 19-41 % Normal LY% 37.6 LAB L100.2300 0-10 % Normal MONO% 9.2 LAB L100.2400 0-5 % Normal EO% 0.3 LAB L100.2500 0-1 % Normal BASO% 0.7 LAB L100.2550 0.0-0.9 % Normal IM GRAN % 0.400 Result Comment: IG% - Immature Granulocytes (promyelocytes, myelocytes and metamyelocytes) > 1% indicates that a LEFT SHIFT is Present. LAB L100.2620 2.0-7.7 X10 3/uL High Absolute Neut 9.8 LAB L100.2720 0.83-4.51 X10 3/ul High Absolute Lymph 7.08 LAB L100.4500 Normal SMEAR COMMENT SCANNED LAB L100.5500 ADEQ Normal PLT EST ADEQUATE LAB L100.9900 Normal PATH REV Reviewed Result Comment: Leukocytosis. Clinical correlation necessary. Fernando Briscoe M.D. 06/04/18 AMENDED REPORT 06/04/18 1154 PATH REV previously reported as: November kevin Performed By: #### L100.0100 #### [facility] [address] [place], [address] COMPREHENSIVE METABOLIC Collected: 06/02/2018 Status: F [facility] TYPE CODE TESTS RESULT OUT OF RANGE REFERENCE UNITS LAB L501.0100 74-106 mg/dL Normal GLU 103 Result Comment: Fasting Glucose result from 100 to 125 mg/dL suggests IMPAIRED HOMEOSTASIS per A.D.A. criteria. Please note revised GLUCOSE reference range effective 2017. LAB L501.1000 7-18 mg/dL Normal BUN 15 LAB L501.1100 0.70-1.30 mg/dL Normal CREAT,SERUM 0.85 Result Comment: The validity of the calculated GFR AND GFRAA in patients over 70 years has not been determined. Clinical correlation is essential. LAB L501.1110 >60 mL/min Normal EST GFR 111 Result Comment: Non- GFR Calc LAB L501.1115 >60 mL/min Normal EST GFR - AA 135 Result Comment: GFR Calc LAB L501.1255 ml/min Normal Estimated CRCL 102.46 LAB L501.1300 10-20 RATIO BUN/CRE Normal 17.7 LAB L501.1500 6.4-8. g/dL 2 T PROT Normal 6.9 LAB L501.1800 3.2-5. g/dL 0 ALB Normal 3.9 LAB L501.1950 2.2-4. g/dL 2 GLOB Normal 3.0 LAB L501.2000 0.9-2. RATIO 4 A/G Normal 1.3 LAB L501.2200 8.5-10 mg/dL .1 CA Normal 8.7 LAB L501.4100 15-37 U/L AST Normal 20 Result Comment: Slight Hemolysis, Result may be falsely increased. LAB L501.4305 45-117 U/L Normal ALK P 72 LAB L501.4405 16-61 U/L Normal ALT 24 LAB L501.4600 0.20-1.00 mg/dL Normal T BILI 0.30 LAB L501.5300 136-145 mmol/L Normal NA 138 LAB L501.5600 3.5-5.1 mmol/L Normal K 3.9 Result Comment: Slight Hemolysis, Result may be falsely increased. LAB L501.5900 98-107 mmol/L Normal CL 104 LAB L501.6100 21.0-32.0 mmol/L Normal CO2 28.0 LAB L501.6200 5-15 Normal 6 GAP Performed By: #### L500.4050 #### [facility] [address] [place], [address] LACTIC ACID Collected: 06/02/2018 Status: F Source: [place] 9:32 PM [facility] REPOSITORY Order Comment: Yes/No query for Sepsis Lactate Rule Y TYPE CODE TESTS RESULT OUT OF RANGE REFERENCE UNITS LAB L503.6005 0.4-2.0 mmol/L Normal LACTIC ACID 1.3 Performed By: #### L503.6005 #### [facility] [address] [place], [address] ABDOMEN/PELVIS WITH Observed: 06/02/2018 Status: F Source: [place] CONTRAST 9:14 PM [facility] REPOSITORY [facility] Imaging Services [address] [place] [address] Abdomen/Pelvis WITH Contrast MR#: [id number] Acct: [id number] Name: RAEANN RODRIGUEZ II Rep #: [id number] : 1985 32 From: Kourtney Lira MD PCP: Ed Thomas MD Status: REG ER Study: Abdomen/Pelvis WITH Contrast Date of Exam: 06/02/18 Exam# [id number] Ordering Dr: Renee Kenney MD STUDY: CT ABDOMEN AND PELVIS WITH CONTRAST REASON FOR EXAM: Male, 32 years old. Testicular pain into abdomen RADIATION DOSAGE (If Supplied By Facility): CTDIvol = ( 10.38 ) mGy, DLP = ( 341.66 ) mGycm TECHNIQUE: Transaxial 3.75 mm images were obtained from the dome of the diaphragm to the symphysis pubis with oral contrast. 100 ml of Isovue 300 contrast was administered. Sagittal and coronal images were reconstructed. Individualized dose optimization techniques were used for this CT. COMPARISON: CT abdomen and pelvis 07/05/2017. 08/30/2016. 02/27/2015. FINDINGS: The visualized lung bases are unremarkable. The visualized portions of the heart are within normal limits. There is low attenuation along the falciform ligament most consistent with focal fatty sparing. There is a stable solitary gallstone position close to the gallbladder neck without wall thickening. Surgically absent spleen. Normal pancreas. Normal bilateral adrenal glands. There is no obstructive uropathy, obstructive renal or ureteral calculi. Subcentimeter cortical low attenuation left anterior mid kidney is stable . Normal visualized stomach. Normal small intestine. Normal colon. The appendix is visualized and appears normal. Normal abdominal aorta. Normal inferior vena cava. Normal retroperitoneum. Normal urinary bladder. Normal abdominal wall. Normal osseous structures. CT/Abdomen/Pelvis WITH Contrast IMPRESSION: There is no obstructive uropathy, obstructive renal or ureteral calculi. Normal appendix. Stable cholelithiasis, splenectomy and presumed left mid renal tiny cyst. Electronically Signed: Kourtney Lira MD at 0:12 EST , Service support , CC: Renee Kenney MD; Ed Thomas MD [employer] Operations Supervisor: Signed TESTICULAR WITH Observed: 06/02/2018 Status: F Source: [place] ARTERIAL FLOW 9:13 PM [facility] REPOSITORY [facility] Imaging Services [address] [place] [id number] Testicular with Arterial Flow MR#: [id number] Acct: [id number] Name: RAEANN RODRIGUEZ II Rep #: [id number] : 1985 M 32 From: Sue Marlow MD PCP: Ed Thomas MD Status: REG ER Study: Testicular with Arterial Flow Date of Exam: 06/02/18 Exam# [id number] Ordering Dr: Renee Kenney MD STUDY: SCROTUM ULTRASOUND REASON FOR EXAM: Male, 32 years old. Pain. TECHNIQUE: Ultrasound evaluation of the scrotum was performed with color Doppler and static caraballo-scale imaging. COMPARISON: None. FINDINGS: RIGHT TESTICLE INTRATESTICULAR: There is a normal size of the right testicle. The right testicle measures 3.6 x 2.6 x 2.5 cm. There is a homogenous echotexture. There is normal arterial and normal venous vascularity. There is no demonstrated right testicular mass or cyst. EXTRATESTICULAR: The epididymis is normal in size. There is normal vascularity of the epididymis. There is no demonstrated epididymal cystic structure. There is no demonstrated hydrocele. There is no demonstrated varicocele. There is no demonstrated extratesticular mass or cyst. LEFT TESTICLE INTRATESTICULAR: There is a normal size of the left testicle. The left testicle measures 4.0 x 2.3 x 2.3 cm. There is a homogenous echotexture. There is normal arterial and normal venous vascularity. There is no demonstrated left testicular mass or cyst. EXTRATESTICULAR: The epididymis is normal in size. There is normal vascularity of the epididymis. There is no demonstrated epididymal cystic structure. There is no demonstrated hydrocele. There is no demonstrated varicocele. There is no demonstrated extratesticular mass or cyst. US/Testicular with Arterial Flow IMPRESSION: Within normal limits bilateral testicles. Electronically Signed: Sue Marlow MD at 23:16 EST Tel , Service support , CC: Renee Kenney MD; Ed Thomas MD Airport Operations Supervisor: Signed PROGRESS Observed: 12/25/2017 Status: COMPLETED Source: [place] 9:26 AM [facility] REPOSITORY HNO ID: [id number] Author: Ed Thomas Service: (none) Author Type: Physician Type: Progress Notes Filed: 12/25/2017 10:13 AM Note Text: This note was created using LSN Mobiler[employer]. Subjective Patient presents with: Results Patient Update Raeann Rodriguez was here with and 3 children for follow up. They voiced frustration that multiple evaluation by specialists have not resulted in improvement in his condition. Multiple concerns were raised, but mainly involved Dragan's syndrome, chronic pain, chronic abdominal pain, bleeding tendency, and gallstone. Other concerns were risk of dying at some undetermined point from his hematologic condition, and how his condition is straining his family needs and marriage. I prescribed nortriptyline for chronic pain. This was not tolerated. I referred him to Dr. Eaton for pain management. He was tried on methocarbamol and topiramate without effect. He informed me pain management has signed off. Previous pain management ran the gamut of opiates and non opiate medications for chronic pain. He saw an 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 in July. Dr. Jimenez in [facility] advised ongoing hematology follow up, even as he had no recent flare ups of ITP or autoimmune anemia. He was informed Dragan's syndrome was not normally associated with chronic pain. He was referred to [facility] Hematology. He self referred to GI for abdominal pain. He saw Dr. Britton, who did EGD and colonoscopy showing gastritis. Omeprazole was recommended without relief. He was referred to [facility] GI,Dr. Fernandez who recommended another EGD. He was hesitant to have another EGD. He was more concerned about his gallstone, even though there were no inflammatory changes on imaging. He is fixated on information previously given to him that with his blood condition, his gallstone will continue to grow. I presume this pertained to hemolysis, although hemolysis is not evident at this time. He has seen Dr. Banks for hematology on September 27. His genetic work up for Dragan's syndrome was negative. He was advised to have labs prior to any procedure to monitor his hematologic condition, which was inactive at this time. He reported trying to have dental work which was aborted due to buccal hematoma when anesthetic was injected. He has seen rheumatology, and work up for autoimmune syndromes were negative. He wanted me to advocate for a cholecystectomy. We discussed lack of clear indication and risk of bleeding. However, given his complicated pain syndrome, him and his felt that at least one thing can be addressed, and that his abdominal pains will hopefully be resolved. They understood he has complex pain. Review of Systems Per HPI. Objective BP 106/62 (BP Site: Right Arm, BP Position: Sitting, BP Cuff Size: Regular Adult) Pulse 80 Temp 36.7 ?C (98.1 ?F) (Left Tympanic) Resp 20 Wt 55.3 kg (122 lb) BMI 20.30 kg/m? Physical Exam Constitutional: No distress. Psychiatric: His mood appears anxious. His affect is angry. He is agitated. He exhibits a depressed mood. Test results pertinent to today's visit were reviewed and discussed with the patient in detail. I did not see any major or urgent concerns with his recent labs. 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 Labs recommended prior to any procedure. 2. RUQ abdominal pain - ICD9: 789.01, ICD10: R10.11 I will reach out to surgery for recommendations. 3. Chronic pain syndrome - ICD9: 338.4, ICD10: G89.4 This is complex. Pain management has signed off. Social factors were in play. Consider social work coordinator referral. During this patient visit I have spent approximately 40 minutes out of 40 in counseling and coordinating care. Ed Thomas MD CNOV Observed: 12/21/2017 Status: COMPLETED Source: [place] 4:00 PM [facility] REPOSITORY Office Visit (INTMWS) RAEANN RODRIGUEZ ([id number]) 1985 M Date Time Provider Department 12/21/17 4:00 PM ED THOMAS INTMWS During your visit today, we recorded the following information about you: Temperature Pulse Respiration Blood pressure 98.1 degrees 80/minute 20/minute 106/62 Weight 55.3 kg Ed Thomas MD 12/25/2017 10:13 AM Signed This note was created using [employer] Mobiler[employer]. Subjective Patient presents with: Results Patient Update Raeann Rodriguez was here with and 3 children for follow up. They voiced frustration that multiple evaluation by specialists have not resulted in improvement in his condition. Multiple concerns were raised, but mainly involved Dragan's syndrome, chronic pain, chronic abdominal pain, bleeding tendency, and gallstone. Other concerns were risk of dying at some undetermined point from his hematologic condition, and how his condition is straining his family needs and marriage. I prescribed nortriptyline for chronic pain. This was not tolerated. I referred him to Dr. Eaton for pain management. He was tried on methocarbamol and topiramate without effect. He informed me pain management has signed off. Previous pain management ran the gamut of opiates and non opiate medications for chronic pain. He saw an 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 in July. Dr. Jimenez in [facility] advised ongoing hematology follow up, even as he had no recent flare ups of ITP or autoimmune anemia. He was informed Dragan's syndrome was not normally associated with chronic pain. He was referred to [facility] Hematology. He self referred to GI for abdominal pain. He saw Dr. Britton, who did EGD and colonoscopy showing gastritis. Omeprazole was recommended without relief. He was referred to [facility] GI,Dr. eFrnandez who recommended another EGD. He was hesitant to have another EGD. He was more concerned about his gallstone, even though there were no inflammatory changes on imaging. He is fixated on information previously given to him that with his blood condition, his gallstone will continue to grow. I presume this pertained to hemolysis, although hemolysis is not evident at this time. He has seen Dr. Banks for hematology on September 27. His genetic work up for Dragan's syndrome was negative. He was advised to have labs prior to any procedure to monitor his hematologic condition, which was inactive at this time. He reported trying to have dental work which was aborted due to buccal hematoma when anesthetic was injected. He has seen rheumatology, and work up for autoimmune syndromes were negative. He wanted me to advocate for a cholecystectomy. We discussed lack of clear indication and risk of bleeding. However, given his complicated pain syndrome, him and his felt that at least one thing can be addressed, and that his abdominal pains will hopefully be resolved. They understood he has complex pain. Review of Systems Per HPI. Objective BP 106/62 (BP Site: Right Arm, BP Position: Sitting, BP Cuff Size: Regular Adult) Pulse 80 Temp 36.7 ?C (98.1 ?F) (Left Tympanic) Resp 20 Wt 55.3 kg (122 lb) BMI 20.30 kg/m? Physical Exam Constitutional: No distress. Psychiatric: His mood appears anxious. His affect is angry. He is agitated. He exhibits a depressed mood. Test results pertinent to today's visit were reviewed and discussed with the patient in detail. I did not see any major or urgent concerns with his recent labs. 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 Labs recommended prior to any procedure. 2. RUQ abdominal pain - ICD9: 789.01, ICD10: R10.11 I will reach out to surgery for recommendations. 3. Chronic pain syndrome - ICD9: 338.4, ICD10: G89.4 This is complex. Pain management has signed off. Social factors were in play. Consider social work coordinator referral. During this patient visit I have spent approximately 40 minutes out of 40 in counseling and coordinating care. Ed Thomas MD Referring Provider: SELF [200] Allergies As of Date: 12/21/2017 (No Known Allergies) Date Reviewed: 12/21/2017 Reviewed by: Beverly Carias LPN - Fully Assessed Reason for Visit: Results [95] Patient Update [1234] Reason For Visit History Recorded Primary Visit Diagnosis:John' syndrome (HCC) [D69.41] Other Visit Diagnoses:RUQ abdominal pain [R10.11] Chronic pain syndrome [G89.4] Prescriptions as of 12/21/2017 Sig: OMEPRAZOLE 40 MG CAPSULE,POWER* Take 1 capsule by mouth twice* ACETAMINOPHEN 325 MG TABLET Take 650 mg by mouth every 6 * Medication notes this encounter OMEPRAZOLE 40 MG CAPSULE,DELAYED RELEASE >> Beverly Carias LPN 12/21/2017 3:57 PM >> BEVERLY CARIAS LPN MonDec 21, 2017 3:57 PM Held ACETAMINOPHEN 325 MG TABLET >> Beverly Carias LPN 12/21/2017 3:57 PM >> BEVERLY CARIAS LPN Mya Dec 21, 2017 3:57 PM Held Problem List As Of Date 12/21/2017 Noted Resolved H/O splenectomy [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 Migraine [G43.909] INVALID FOR* Snoring [R06.83] INVALID FOR* Anxiety [F41.9] INVALID FOR* Disposition: Return if symptoms worsen or fail to improve. Follow-up and Disposition History Recorded Encounter Status:Closed by ED THOMAS MD on 12/25/17 JEREMIAHN Observed: 12/20/2017 Status: COMPLETED Source: [place] 12:00 AM [facility] REPOSITORY Telephone (ARTHMN) RAEANN RODRIGUEZ ([id number]) 1985 M Date Time Provider Department 12/20/17 QUIANA RENDON During your visit today, we recorded the following information about you: Eun Sepulveda Psr 12/20/2017 5:25 PM Signed patient's called the office --they would like to speak with the doctor to discuss the lab results pt can be reached at [phone] pts can be reached at [phone] Eun Rendon MD 12/22/2017 10:20 AM Signed Results in regards to lupus are normal. No abnormal labs to explain his pain symptoms. Has low IgG, IgM which can predispose to infections but not any pain, if he has frequent infections (I dont recall telling me so) then Jethro Barillas referral will be the way to go MD Eun Chaudhari Psr 12/22/2017 12:24 PM Signed called pts and informed of the message below Results in regards to lupus are normal. No abnormal labs to explain his pain symptoms. Has low IgG, IgM which can predispose to infections but not any pain, if he has frequent infections (I dont recall telling me so) then Jethro Barillas referral will be the way to go MD Eun Chaudhari MD 12/25/2017 10:44 AM Signed If no infections, no need to see MD Quiana Lin MD 12/25/2017 4:29 PM Signed I do not have any explanation for his pain, nothing related to his diagnosis of John Syndrome He does not have any rheumatologic diagnosis to explain his pain symptoms Quiana Rendon MD Allergies As of Date: 12/20/2017 (No Known Allergies) Date Reviewed: 12/12/2017 Reviewed by: Lulu Peraza Ma - Fully Assessed Reason for Visit: Results [95] Prescriptions as of 12/20/2017 Sig: OMEPRAZOLE 40 MG CAPSULE,POWER* Take 1 capsule by mouth twice* ACETAMINOPHEN 325 MG TABLET Take 650 mg by mouth every 6 * Problem List As Of Date 12/20/2017 Noted Resolved H/O splenectomy [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 Migraine [G43.909] INVALID FOR* Snoring [R06.83] INVALID FOR* Anxiety [F41.9] INVALID FOR* Encounter Status:Closed by EUN PAIZ on 12/20/17 URINALYSIS Collected: 12/12/2017 Status: F Source: [place] 2:21 PM [facility] TYPE CODE TESTS RESULT OUT OF RANGE REFERENCE UNITS LAB UCOL Yellow Color Yellow LAB [facility] Clear Clarity Abnormal Cloudy Alert LAB UGLUC Negative mg/dL Glucose, Urine Negative LAB UBIL Negative Bilirubin, Urine Negative LAB UKET Negative Ketones, Urine Negative LAB USPG 1.005-1.030 Specific [place], Ur 1.029 LAB UHGB Negative Hemoglobin/Blood, Negative Ur LAB UPH 4.5-8.0 pH 6.0 LAB UPROT Negative mg/dL Protein, Abnormal Urine 30 Alert LAB UUROB Normal Urobilinogen Normal LAB UNITR Negative Nitrites Negative LAB ULKEST Negative Leukest Abnormal Trace Alert LAB UCOM Comments SEE COMMENT Result Comment: Microscopic Examination Performed LAB UWBC 0-5 /HPF WBC 0-5 LAB URBC 0-3 /HPF Abnormal Alert RBC 3-5 LAB UMCOM Urine Mack SEE COMMENT Comment Result Comment: N/A Performed By: #### UA #### [facility] [address] [place], [place] [address] AMYLASE Collected: 12/12/2017 Status: F Source: [place] 2:10 PM [facility] REPOSITORY TYPE CODE TESTS RESULT OUT OF REFERENCE UNITS RANGE LAB AMYL 30-104 U/L Amylase 75 Performed By: #### AMYL, CMP, LIPA #### [facility] [employer] [address] [place], [place] [address] COMP METABOLIC PANEL Collected: 12/12/2017 Status: F Source: [place] 2:10 PM [facility] REPOSITORY TYPE CODE TESTS RESULT OUT OF REFERENCE UNITS RANGE LAB TP 6.3-8.0 g/dL Protein, Total 7.2 LAB ALB 3.9-4.9 g/dL Albumin High 5.1 LAB CA 8.5-10.2 mg/dL Calcium, Total 9.6 LAB TBIL 0.2-1.3 mg/dL Bilirubin, Total 0.5 LAB ALKP 36-108 U/L Alkaline Phosphatase 51 LAB AST 14-40 U/L AST 29 LAB GLU 74-99 mg/dL Glucose 99 Result Comment: The [place] Diabetes Association (ADA) provides guidance for cutoff values for fasting glucose and random glucose. The ADA defines fasting as no caloric intake for at least 8 hours. Fas ting plasma glucose results between 100 to 125 mg/dL indicate increased risk for diabetes (prediabetes). Fasting plasma glucose results greater than or equal to 126 mg/dL meet the criteria for diagnosis of diabetes. In the absence of unequivocal hyperglycemia, results should be confirmed by repeat testing. In a patient with classic symptoms of hyperglycemia or hyperglycemic crisis, random plasma glucose results greater than or equal to 200 mg/dL meet the criteria for diagnosis of diabetes. Reference: Standards of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 Modalities, Myofascial Release, Neuromuscular re-education, Therapeutic activities and Therapeutic exercise Patient demonstrates good understanding of plan of care and treatment. The above goals and plan of care were discussed and agreed upon by patient/family. Billing: [facility]: Evaluation - Moderate Complexity (79023) Therapeutic Exercise (61560): 1:1 time: 20 minutes (1 unit: 8-22 mins) Total time: 45 minutes Andrew Byrnes PT Andrew Byrnes PT 08/04/2017 7:37 AM Signed [facility] PHYSICAL THERAPY DISCONTINUANCE OF CARE Plan of Care Period: 10/21/2016 Last Visit Date: 10/21/2016 Therapy Program: Patient did not return for follow up care as planned. Please refer to last visit note for interventions provided for this episode of care. Assessment: Unable to formally assess goal achievement due to non-compliance with therapy plan of care. Reason for Discontinuation of Care: Patient has not returned to therapy or scheduled additional follow-up appointments. Andrew Byrnes PT ALLERGIES ALLERGIES DATE TYPE / CODE NAME / CODE REACTION SEVERITY SOURCE 06/12/2018 Drug No Known Unknown [facility] Allergy/416 Allergies/U07858 Hospital 657715(SNOM 0388(RXNORM) Repository ED CT) /[id number] NO KNOWN [facility] 6([facility]) Repository Drug NO KNOWN [facility] Class/64565 ALLERGIES [facility] 1003(SNOMED Repository CT) ENCOUNTERS ENCOUNTERS ADMIT/DISCHARGE ACCOUNT NUMBER ADMITTING ENCOUNTER LOCATION SOURCE CLASS 06/12/2018/06/12/20 [id number] Emergency [address] ding:ED Repository 06/08/2018/06/08/20 [id number] Emergency [address] ding:ED Repository 06/02/2018/06/03/20 [id number] Emergency [address] ding:ED Repository 12/21/2017/12/27/19 [id number] Ambulatory [address] Repository 12/12/2017/12/13/19 [id number] Ambulatory [address] Repository 12/12/2017 [id number] Ambulatory [facility] Repository 12/12/2017/12/13/19 [id number] Ambulatory [address] [place] Repository 11/21/2017 [id number] Ambulatory [facility] [place] Repository 11/21/2017 [id number] Ambulatory [facility] MEDICAL Repository CENTERBuildi ng:AKUSB 11/08/2017/11/09/19 [id number] Ambulatory [address] [place] Repository 11/08/2017/11/09/19 [id number] Ambulatory [address] MEDICAL Repository CENTERBuildi ng:AGGASTACC 10/17/2017/10/18/19 [id number] Emergency Estuardo Estuardo [facility] ding:ED Repository 09/27/2017/09/28/19 [id number] Ambulatory [address] [place] Repository 08/30/2017/09/01/19 [id number] Ambulatory [address] [place] Repository 08/23/2017/08/23/19 [id number] [facility], [address] [place] Repository 08/18/2017/08/18/19 [id number] Ambulatory [address] [place] Repository 07/28/2017/07/28/19 [id number] [facility], Ambulatory [address] [place] Repository 07/07/2017/07/13/19 [id number] Ambulatory [address] [place] Repository 07/07/2017/07/11/19 [id number] Ambulatory [address] [place] Repository 07/05/2017/07/05/20 [id number] Emergency Estuardo Estuardo [address] [place] [address] ding:ED Repository 06/30/2017/07/05/20 [id number] Ambulatory [address] [place] Repository 06/29/2017/07/05/20 [id number] Ambulatory [address] [place] Repository 06/28/2017/07/05/20 [id number] Ambulatory [address] [place] Repository 10/21/2016/10/22/19 [id number] Ambulatory [address] [place] Repository PAYERS PAYERS ENCOUNTER GUARANTOR PAYER SUBSCRIBER SOURCE 06/12/2018 RAEANN SCRUGGS Primary RAEANN RODRIGUEZ [id number] Insurance:[facility] KAUFFMANB: [facility] cj MEZA Number: [id number][facility] [address]Kqd: [id number] Repository Date:2018-06-12P O () [address]ATTN: [place] [address]CQ: 06/12/2018 Secondary NOT GIVENUNK [place] Insurance:SELF PAY [facility] Number: Effective Repository Date:2018-06-12 06/08/2018 RAEANN SCRUGGS Primary RAEANN Marte JENNIFER [id number] Insurance:CARESOURCEP JENNIFER IIDOB: [facility] cj MEZA Number: [id number]-[facility] Centerb [address]Rjm: [id number] Repository Date:2018-06-08P O () [address]ATTN: [place] [address]HV: 06/08/2018 Secondary NOT GIVENUNK [place] Insurance:SELF PAY [facility] Number: Effective Repository Date:2018-06-08 06/02/2018 RAEANN SCRUGGS Primary RAEANN RODRIGUEZ [id number] Insurance:CARESOURCEP JENNIFER IIDOB: [facility] cj MEZA Number: [id number]-Northern [facility] Medical Centerb [id number]: [id number] Repository Date:2018-06-02P O () [address]ATTN: [place] [address]KF: 06/02/2018 Secondary NOT GIVENUNK Estuardo Insurance:SELF PAY [facility] Number: Effective Repository Date:2018-06-02 11/21/2017 RAEANN Ag Primary RAEANN Ag [facility] HIGGSDOB: Insurance:CARESOURCE HIGVIVIANDOB: Health System MEDICAIDPolicy [id number] Repository KARLA HALEY, Number: [place] [id number]: [id number] Date: () 11/08/2017 RAEANN L Primary RAEANN L [facility] HIGGSDOB: Insurance:CARESOURCE HIGGSDOB: Health System [id number] [facility] [id number] Repository KARLA HALEY, Number: [place] [id number]: [id number] Date: () 10/17/2017 RAEANN RODRIGUEZ Primary RAEANN Marte [id number] KARLA Insurance:CARESOURCRASHAD RODRIGUEZ IIDOB: [facility], [place] SHAFER [facility] Number: [id number] [id number]: 330 [id number] Repository [phone] (HP) Date:2017-10-17[address]ATTN: [place] [address]HJ: 10/17/2017 Secondary NOT GIVENUNK Estuardo Insurance:SELF PAY [facility] Number: Effective Repository Date:2017-10-17 07/05/2017 [facility]annsmitha [facility] [id number] Karla Insurance:CARESOURCEP JENNIFER IIDOB: [facility] [place] [facility] Number: [id number] Hospital [address]Etl: 330 [id number] Repository [phone] (HP) Date:2017-07-05[address]ATTN: [place] [address]XH: 07/05/2017 Secondary NOT GIVENUNK Estuardo Insurance:SELF PAY [facility] Number: Effective Repository Date:2017-07-05
== END 2018-06-08 19:39 | disposition home or self-care (01) ==
PROVIDERS: Emergency Provider Emergency Medicine; Family Provider Internal Medicine; PCP Internal Medicine
DX: H66.91 Otitis media, unspecified, right ear (principal); H72.91 Unspecified perforation of tympanic membrane, right ear; D69.41 Evans syndrome; Z72.0 Tobacco use; Z79.899 Other long term (current) drug therapy
CPT/HCPCS: 99283

== ENCOUNTER 2018-06-12 18:57 | Emergency (ER) | payer MEDICAID, SELFPAY ==
[2018-06-12 18:58] VITALS: BP 142/72; PULSE 88; RESP 20; TEMP 36.7; O2SAT 98; BMI 21.1
--- NOTE | 2018-06-12 19:17 | ED.VISSUMM ---
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 that apparently has been stable, he also reports he has fibromyalgia arthritis and other medical conditions that cause whole body pain, he indicates he developed what sounds like a URI than an ear infection right ear he indicates he believes he had a rupture of the eardrum was seen in the emergency department a few days ago treated for that with IV fluids as well as the whole body pain he is taking his amoxicillin but he reports he still having diffuse whole body pain he cannot tolerate this anymore, indicates again his John syndrome is stable 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, 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, at the [facility], he was transferred to [facility] subspecialist and has been seeing them 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, he also has arthritis he believes he has lumbar or cervical disc disease In case of any type of an illness triggers whole-body diffuse pain he has had multiple times in the past the exact etiology of that is unclear he usually is treated with IV fluids and sometimes he indicates he requires admission Physical Examination: [] 140/72, he is afebrile General, no distress he is simply complained that his entire body every bone in his body hurts nothing specific no focality HEENT is generally unremarkable, his right TM appears to have a TM rupture but no drainage or signs of infection or anything acute The neck is supple no adenopathy Cardiovascular, regular rate and rhythm Lungs, clear bilateral Abdomen, soft nontender Extremities, no clubbing cyanosis or edema full range of motion no Kernig's or Brudzinski's Neurologic, awake alert answering questions appropriately moving all 4 extremities his neck is very supple he is awake alert answering questions appropriately, his NIH is 0 Test Results: [] Emergency Department Course and Treatment: [] Given his age his complaints of the above will obtain screening labs IV fluids pain management and reevaluate Patient's lab studies are all generally generally unremarkable please see those reports on reevaluation he is resting comfortably in bed states he feels slightly better He expresses quite a bit of frustration as to the fact that no one will manage his pain and no one will believe that this is his John syndrome, I explained to him at this time there does not appear to anything life-threatening or acute he did a very competent evaluation through the emergency department, after further conversation with him he has been seen by multiple outpatient providers as above he is even been seen by different pain management team for over 4 years he recently switched to the [place] pain management team and he reports partial improvement of his chronic pain with them This time he feels well for discharge she is comfortable discharge home I explained to him that the emergency department cannot further manage his pain he must obtain his pain management and further ongoing therapy through his outpatient providers and again he went through a long list of outpatient providers he seen as above and he was instructed to follow back up with them and return for change in symptoms Treatment Plan: [] Disposition: [] Home stable Impression: [] Diffuse whole body pain etiology unclear reported history of John syndrome This note was generated with [employer] dictation software. It may contain incorrect words, spelling, and punctuation that were not noted in review of the chart prior to signing ED Disposition - Plan for ED Patient: Chief Complaint: General Illness Referrals: Ed Thomas MD [Primary Care Provider] -
--- NOTE | 2018-06-12 19:20 | ED.DCSUM_ITS ---
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 that apparently has been stable, he also reports he has fibromyalgia arthritis and other medical conditions that cause whole body pain, he indicates he developed what sounds like a URI than an ear infection right ear he indicates he believes he had a rupture of the eardrum was seen in the emergency department a few days ago treated for that with IV fluids as well as the whole body pain he is taking his amoxicillin but he reports he still having diffuse whole body pain he cannot tolerate this anymore, indicates again his John syndrome is stable 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, 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, at the [facility], he was transferred to [facility] subspecialist and has been seeing them 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, he also has arthritis he believes he has lumbar or cervical disc disease In case of any type of an illness triggers whole-body diffuse pain he has had multiple times in the past the exact etiology of that is unclear he usually is treated with IV fluids and sometimes he indicates he requires admission Physical Examination: [] 140/72, he is afebrile General, no distress he is simply complained that his entire body every bone in his body hurts nothing specific no focality HEENT is generally unremarkable, his right TM appears to have a TM rupture but no drainage or signs of infection or anything acute The neck is supple no adenopathy Cardiovascular, regular rate and rhythm Lungs, clear bilateral Abdomen, soft nontender Extremities, no clubbing cyanosis or edema full range of motion no Kernig's or Brudzinski's Neurologic, awake alert answering questions appropriately moving all 4 extremities his neck is very supple he is awake alert answering questions appropriately, his NIH is 0 Test Results: [] Emergency Department Course and Treatment: [] Given his age his complaints of the above will obtain screening labs IV fluids pain management and reevaluate Patient's lab studies are all generally generally unremarkable please see those reports on reevaluation he is resting comfortably in bed states he feels slightly better He expresses quite a bit of frustration as to the fact that no one will manage his pain and no one will believe that this is his John syndrome, I explained to him at this time there does not appear to anything life-threatening or acute he did a very competent evaluation through the emergency department, after further conversation with him he has been seen by multiple outpatient providers as above he is even been seen by different pain management team for over 4 years he recently switched to the [place] pain management team and he reports partial improvement of his chronic pain with them This time he feels well for discharge she is comfortable discharge home I explained to him that the emergency department cannot further manage his pain he must obtain his pain management and further ongoing therapy through his outpatient providers and again he went through a long list of outpatient providers he seen as above and he was instructed to follow back up with them and return for change in symptoms Treatment Plan: [] Disposition: [] Home stable Impression: [] Diffuse whole body pain etiology unclear reported history of John syndrome This note was generated with [employer] dictation software. It may contain incorrect words, spelling, and punctuation that were not noted in review of the chart prior to signing ED Disposition - Plan for ED Patient: Chief Complaint: General Illness Referrals: Ed Thomas MD [Primary Care Provider] -
[2018-06-12] MEDS: morphine 8 MG/ML Syringe IV (19:30)
[2018-06-12] MEDS: Ondansetron 4 MG/2 ML Vial IV (19:30)
[2018-06-12] MEDS: 0.9% Normal Saline 1,000 ML 1000 ML IV (19:30)
[2018-06-12 19:42] LABS: Absolute Lymphocyte Count 4.11 X10^3/ul (0.83-4.51); Absolute Neutrophil Count 7.4 X10^3/uL (2.0-7.7); Basophil% 0.8 % (0-1); Eosinophil# 0.07 X10^3/uL; Eosinophils% 0.5 % (0-5); Hematocrit 49.4 % (40-54); Hemoglobin 16.7 g/dl (13.0-16.5); Lymphocyte # 4.11 X10^3/ul (4.0); Lymphocyte % 31.8 % (19-41); Mean Corp Hgb Conc 33.8 g/gl (32-36); Mean Corpuscular Hgb 31.5 pg (27.0-32.0); Mean Platelet Vol. 10.4 fl (6.2-12.0); Monocyte# 1.19 X10^3/uL; Monocyte% 9.2 % (0-10); Neutrophil # 7.41 X10^3/uL (2.7-7.7); Neutrophil % 57.4 % (47-70); Platelet Count 222 K/mm3 (150-450); RBC Distribution Width CV 14.5 % (11.6-14.6); RBC Distribution Width SD 48.4 fl (35.1-43.9); Red Blood Count 5.31 M/mm3 (4.6-6.2); White Blood Count 12.9 K/mm3 (4.4-11.0)
[2018-06-12 19:43] LABS: POSITIVE COUNT NO; POSITIVE DIFFERENTIAL NO; POSITIVE MORPHOLOGY NO
[2018-06-12 19:58] LABS: AST(SGOT) 29 U/L (15-37); Alanine Aminotransfer ALT/SGPT 32 U/L (16-61); Albumin, Serum 4.1 g/dL (3.2-5.0); Alkaline Phosphatase 70 U/L (45-117); Anion Gap 8 (5-15); BUN 14 mg/dL (7-18); BUN/Creat Ratio 14.4 RATIO (10-20); Bilirubin, Direct 0.13 mg/dL (0.00-0.30); Chloride 104 mmol/L (98-107); Creatinine, Serum 0.98 mg/dL (0.70-1.30); EST Glomerular Filtration Rate 94 mL/min (>60); Est Glom Filt Rate - Afr Amer 114 mL/min (>60); Estimated Creatinine Clearance 88.17 ml/min; Globulin 3.9 g/dL (2.2-4.2); Glucose 93 mg/dL (74-106); Lipase 94 U/L (73-393); Potassium 4.1 mmol/L (3.5-5.1); Sodium Level 140 mmol/L (136-145)
[2018-06-12 20:18] LABS: Bacteria 0 SEEN /hpf (None Seen); Mucous, Urine 0 SEEN /hpf (<or=2+); Red Blood Cells-Urine 0 SEEN /hpf (0-5); Squamous Epithelial Cells - UA 0 SEEN /hpf (0-5); White Blood Cells 0 SEEN /hpf (0-5)
[2018-06-12 20:34] LABS: Color, Urine Yellow (Yellow); Glucose, Dipstick Normal (Normal); Ketone-Dipstick 5 mg/dl (Negative); Leukocyte Esterase-Dipstick 100 /ul (Negative); Nitrite-Dipstick Negative (Negative); Occult Blood-Urine Negative /ul (Negative); Protein-Dipstick Negative (Negative); Urine Bilirubin Dipstick Negative (Negative); Urine Clarity Clear (Clear); Urine Urobilinogen 1 mg/dl (Normal)
--- NOTE | 2018-06-12 20:46 | ED.DEP ---
ED Disposition - Plan for ED Patient: Chief Complaint: General Illness Instructions: What is Rheumatoid Arthritis?, What Is Arthritis? Referrals: Ed Thomas MD [Primary Care Provider] -
[2018-06-12] MEDS: Morphine 4 MG/ML Syringe IV (21:03)
[2018-06-12 21:05] VITALS: BP 126/78; PULSE 92; RESP 16; O2SAT 98; O2SAT 99
== END 2018-06-12 21:08 | disposition home or self-care (01) ==
LOC: ED 19:31
PROVIDERS: Emergency Provider Emergency Medicine; Family Provider Internal Medicine; PCP Internal Medicine
DX: R52 Pain, unspecified (principal); D69.41 Evans syndrome; M19.90 Unspecified osteoarthritis, unspecified site; H66.91 Otitis media, unspecified, right ear; H72.91 Unspecified perforation of tympanic membrane, right ear; Z79.2 Long term (current) use of antibiotics
CPT/HCPCS: 80048; 80076; 81001; 83690; 85025; 96361; 96374; 96375; 96376; 99282; J7030; A4216; J2405

== ENCOUNTER → 2018-09-05 17:44 | Outpatient (CLI) | payer MEDICAID, SELFPAY ==
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
== END ==
PROVIDERS: Family Provider Internal Medicine; PCP Internal Medicine; Referring Provider Anesthesiology Pain Medicine; Visit Provider Anesthesiology Pain Medicine
DX: M54.5 Low back pain (principal)
CPT/HCPCS: 72148

== ENCOUNTER → 2018-10-30 | Outpatient (CLI) | payer MEDICAID, SELFPAY ==
[2018-10-30 09:35] VITALS: BMI 21.1
--- NOTE | 2018-10-30 09:40 | RAD_ITS ---
STUDY: X-RAY - LUMBAR SPINE REASON FOR EXAM: Male, 32 years old. Pain. TECHNIQUE: 4 view(s) of the lumbar spine were obtained. COMPARISON: None FINDINGS: Normal lumbar lordosis. There is no substantial scoliosis. There is a normal alignment of the vertebrae. Alignment appears anatomic on flexion and extension versus neutral. Normal vertebral bodies and endplates. Normal disc space heights. The soft tissue structures are unremarkable. There is mild bilateral facet arthrosis involving L3, L4, L5 and S1. RAD/L/S Spine Min 4 Views IMPRESSION: Mild bilateral facet arthrosis involving L3, L4, L5 and S1. No evident acute osseous abnormality. Stable anatomic alignment on flexion and extension versus neutral. Electronically Signed: Foster Chicas MD at 16:41 EDT , Service support ,
== END | disposition home or self-care (01) ==
LOC: HPRAD 09:40
PROVIDERS: Family Provider Internal Medicine; PCP Internal Medicine; Visit Provider Orthopaedic Surgery
DX: M54.5 Low back pain (principal)
CPT/HCPCS: 72110

== ENCOUNTER 2019-02-27 12:30 | Outpatient (RCR) | payer MEDICAID, SELFPAY ==
[2018-10-30 09:35] VITALS: BMI 21.1
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
--- NOTE | 2019-05-07 10:56 | HP.PT.NRP ---
HP - Discharge Summary (1) - Patient Information ISAI STUART II was seen in my office for initial evaluation on 11/12/18. The following Plan of Care was established for this patient: Initial Frequency: 2x /Week Initial Duration: 4-6 Weeks - Anticipated Interventions Patient/Client Instruction: Educate patient on: Condition, Plan of Care For the Purpose of:: To improve self management Therapeutic Exercise to Include: Strength training, Endurance training, Postural training, In an aquatic setting, Dynamic Lumbar Stabilization, Scapular Strength/Stabilization For the Purpose of:: To decrease pain, To improve muscle performance and motor function, To increase tolerance to activity/condition/position This patient was last seen in our office . Pertinent comments regarding their Physical therapy will appear below: Patient was treated for LBP for 12 PT visits through the date of 02/27/19. Pt has not returned through todays date and is discontinued at this time. At this point I will be discontinuing this patient from physical therapy. I would be happy to see this patient again in the future if found appropriate by the physician. Thank you! Woody Casey, PT, ATC
== END 2019-02-27 19:00 | disposition home or self-care (01) ==
LOC: PT 12:30
PROVIDERS: Family Provider Internal Medicine; PCP Internal Medicine; Referring Provider Orthopaedic Surgery; Visit Provider Orthopaedic Surgery
DX: M54.9 Dorsalgia, unspecified (principal)
CPT/HCPCS: 97110; 97113; 97161

== ENCOUNTER 2019-08-02 12:56 | Emergency (ER) | payer MEDICAID, SELFPAY ==
[2018-10-30 09:35] VITALS: BMI 21.1
[2019-08-02 12:58] VITALS: BP 118/76; PULSE 88; RESP 16; TEMP 36.6; O2SAT 100; BMI 22.4
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
--- NOTE | 2019-08-02 14:06 | ED.DCSUM_ITS ---
History of Present Illness Chief Complaint: Lower Extremity Injury Detail of Chief Complaint: Left knee pain Informant: Patient Onset: Yesterday Context: Gradual Onset Timing: Waxes and wanes Current Severity: Moderate Maximum Severity: Moderate Narrative: Patient has a history of John syndrome. He has chronic back pain and is currently in water therapy. Patient states while he was doing his therapy yesterday he noted a lot of grinding in his knees. Last evening he felt a sliding sensation in his knee. He felt a pop in his knee last night and states it became more swollen and red. 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 This has not been checked recently. 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 Past Medical History - Allergies and Home Meds Allergies/Adverse Reactions: Allergies No Known Allergies Allergy (Verified 08/02/19 13:00) Primary Care Physician: Ed Thomas MD [STAFF PHYSICIAN] - Prior records reviewed: Yes Surgical History: - - Splenectomy Lives: Spouse/ Significant Other Smoking Status: Never smoker Review of Systems General: Denies: Chills, Fever Eyes: Denies: Visual changes - bilaterally ENT: Denies: Bilateral ear pain Cardiovascular: Denies: Chest pain Respiratory: Denies: Dyspnea Gastrointestinal: Denies: Abdominal pain, Nausea, Vomiting, Diarrhea Musculoskeletal: Reports: Arthralgias, Extremity Pain Skin: Denies: Rash Neurological: Denies: Parasthesia Psych: Denies: Depression Allergy: Denies: Uticaria Physical Exam Vital Signs/Narrative: Vital Signs Temp Pulse Resp BP Pulse Ox 08/02/19 12:58 97.8 F 88 16 118/76 100 Inital Vital Signs reviewed: Yes General: Well nourished, Well developed Head: Normocephalic ENT: Moist mucous membranes Neck: Supple Cardiovascular: Regular rate, Regular rhythm Respiratory: No distress, CTA bilaterally Abdomen: Soft, Nontender Extremities: - - Tenderness to palpation diffusely around the left knee. He has mild tenderness at the joint lines. Minimal edema noted. No erythema or warmth. Strong distal pulses. Skin: Normal color Neurological: Alert, Oriented x3 Psychological: Normal affect Diagnostic/Tx/Re-eval Impressions Knee X-Ray 08/02/19 13:21 IMPRESSION: Small joint effusion. Soft tissue swelling. Stable linear calcification in the proximal metaphysis of the tibia suggestive of either a healed bone infarct or cartilaginous calcification. Electronically Signed: Malcolm Tatum, at 13:47 EST , Service support , 08/02/19 13:21 Knee 4 or More Views [RAD] Stat Laboratory Results 08/02/19 14:25 WBC 8.2 RBC 5.10 Hgb 15.3 Hct 45.7 MCV 89.6 MCH 30.0 MCHC 33.5 RDW Std Deviation 44.2 H RDW Coeff of Araceli 13.5 Plt Count 266 MPV 10.9 Immature Gran % (Auto) 0.400 Neut % (Auto) 45.5 L Lymph % (Auto) 38.9 Kings % (Auto) 10.3 H Eos % (Auto) 3.4 Baso % (Auto) 1.5 H Absolute Neuts (auto) 3.8 Absolute Lymphs (auto) 3.20 Nucleated RBC % 0 - Medical Decision Making Patient was given 1 tab of oxycodone for pain. X-ray shows a small joint effusion. Because of his propensity for thrombocytopenia with John syndrome CBC was obtained. Platelet count is within normal limits. Seth wrap will be applied and patient be given crutches. He is referred to orthopedics for follow-up as needed. ED Disposition - Plan for ED Patient: Disposition: Home or Assisted Living Diagnosis: Knee sprain Instructions: Knee Sprain Prescriptions: Oxycodone HCl/Acetaminophen [Percocet 5/325] 1 tablet PO Q6H PRN PRN 3 Days #12 tablet PRN Reason: Pain Transmission Status: Sent to [id number] Referrals: Ed Thomas MD [STAFF PHYSICIAN] - Abiodun Colmenares MD [STAFF PHYSICIAN] - As Needed
[2019-08-02] MEDS: oxyCODONE 5 MG Tablet PO (14:14)
[2019-08-02 14:31] LABS: Absolute Neutrophil Count 3.8 X10^3/uL (2.0-7.7); Basophil# 0.12 X10^3/uL; Basophil% 1.5 % (0-1); Eosinophil# 0.28 X10^3/uL; Eosinophils% 3.4 % (0-5); Hematocrit 45.7 % (40-54); Hemoglobin 15.3 g/dL (13.0-16.5); Lymphocyte % 38.9 % (19-41); Mean Corp Hgb Conc 33.5 g/dL (32-36); Mean Corpuscular Volume 89.6 fL (80-94); Mean Platelet Vol. 10.9 fl (6.2-12.0); Monocyte# 0.85 X10^3/uL; Monocyte% 10.3 % (0-10); NRBC Flagged by Analyzer 0 % (0-5); Neutrophil # 3.75 X10^3/uL (2.7-7.7); Neutrophil % 45.5 % (47-70); Platelet Count 266 K/mm3 (150-450); RBC Distribution Width CV 13.5 % (11.6-14.6); RBC Distribution Width SD 44.2 fl (35.1-43.9); White Blood Count 8.2 K/mm3 (4.4-11.0)
[2019-08-02 15:41] VITALS: BP 110/79; PULSE 799; RESP 16; O2SAT 97
== END 2019-08-02 15:35 | disposition home or self-care (01) ==
PROVIDERS: Emergency Provider Emergency Medicine
DX: S83.92XA Sprain of unspecified site of left knee, initial encounter (principal); X58.XXXA Exposure to other specified factors, initial encounter; Y93.14 Activity, water aerobics and water exercise; Y92.9 Unspecified place or not applicable; M79.7 Fibromyalgia; D69.41 Evans syndrome; M54.9 Dorsalgia, unspecified; G89.29 Other chronic pain; Z90.81 Acquired absence of spleen; Z79.899 Other long term (current) drug therapy
CPT/HCPCS: 73564; 85025; 99284; A4216

== ENCOUNTER → 2019-08-07 11:18 | Outpatient (CLI) | payer MEDICAID, SELFPAY ==
[2019-08-02 12:58] VITALS: BMI 22.4
--- NOTE | 2019-08-07 11:20 | VDLE_ITS ---
Reason For Study: SWELLING Procedure LEFT Exam performed in department. GSV is normal. A preliminary report was called and/or faxed CFV is compressible, spontaneous, phasic, to DR SY. competent, and demonstrates normal augmentation. FV is compressible, spontaneous, phasic, competent and demonstrates normal augmentation. POP V is compressible, spontaneous, phasic, competent and demonstrates normal augmentation. T/P Trunk is compressible. PTV is compressible. LT PerV is compressible. Interpretation Summary Deep veins of the left lower extremity are patent and compressible segmentally. There is no evidence of left lower extremity deep vein thrombosis. Valvular competence appears intact within the proximal deep venous system on the left . The left great saphenous vein appears patent and compressible segmentally. Ordering Physician: Sánchez Sy Referring Physician: Sánchez Sy Performed By: Belle Jones, ROSE, RVT
== END ==
PROVIDERS: Referring Provider Orthopaedic Surgery; Visit Provider Orthopaedic Surgery
DX: M79.89 Other specified soft tissue disorders (principal)
CPT/HCPCS: 93971

== ENCOUNTER 2019-08-19 16:19 | Emergency (ER) | payer MEDICAID, SELFPAY ==
[2019-08-07 10:12] VITALS: BMI 22.4
[2019-08-19 16:20] VITALS: BP 117/87; PULSE 78; RESP 16; TEMP 37.3; O2SAT 100; BMI 23.3
--- NOTE | 2019-08-19 16:33 | ED.DCSUM_ITS ---
History of Present Illness Chief Complaint: Rash Informant: Patient Onset: Yesterday Current Severity: Moderate Maximum Severity: Moderate Narrative: Patient states he noted a area of erythema with dry itchy skin on his right lower abdomen yesterday. He did not think much of it. It was still there today and then after waking this afternoon noted rash spread diffusely over his trunk, face, upper extremities. He has very minimal lesions on his lower extremities. Patient denies any new soaps, medications, lotions, detergents, etc. Patient does have a history of John syndrome which can cause low platelets but lesions do not appear consistent with petechiae. 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 chronic bone pain (3) Fibromyalgia Status: Chronic (4) Post-splenectomy Status: Chronic Past Medical History - Allergies and Home Meds Allergies/Adverse Reactions: Allergies No Known Allergies Allergy (Verified 08/19/19 16:19) Primary Care Physician: Care Physician,No Primary [Primary Care Provider] - Prior records reviewed: Yes Surgical History: - - Splenectomy Lives: With Family Smoking Status: Never smoker Review of Systems General: Denies: Chills, Fever Eyes: Denies: Visual changes - bilaterally ENT: Denies: Bilateral ear pain Cardiovascular: Denies: Chest pain Respiratory: Denies: Dyspnea, Cough Gastrointestinal: Denies: Abdominal pain, Nausea, Vomiting, Diarrhea Musculoskeletal: Reports: Extremity Pain - Left knee pain, currently being worked up by orthopedics Skin: Reports: Rash Neurological: Denies: Headache Physical Exam Vital Signs/Narrative: Vital Signs Temp Pulse Resp BP Pulse Ox 08/19/19 16:20 99.2 F H 78 16 117/87 H 100 Inital Vital Signs reviewed: Yes General: Well nourished, Well developed Head: Normocephalic ENT: Moist mucous membranes Neck: Supple Cardiovascular: Regular rate, Regular rhythm Respiratory: No distress, CTA bilaterally Abdomen: Soft, Nontender Skin: - - Erythematous, slightly raised rash on face, trunk, upper extremities. Areas of these do appear consistent with urticaria. They are not consistent with petechiae. There are no target lesions or vesicles. Neurological: Alert, Oriented x3 Psychological: Normal affect Diagnostic/Tx/Re-eval - Medical Decision Making Patient's rash appears consistent with an allergic reaction with urticarial lesions. He be treated with Benadryl and prednisone, first doses given here. ED Disposition - Plan for ED Patient: Disposition: Home or Assisted Living Diagnosis: Urticaria Instructions: Hives Prescriptions: DiphenhydrAMINE [Benadryl] 50 mg PO BID PRN PRN #14 cap PRN Reason: Rash/Topical Irritation Transmission Status: [facility] to [id number] Prednisone [Deltasone] 40 mg PO DAILY #10 tab Transmission Status: Pending to [facility]/pharmacy #[id number] Referrals: Edgardo Mendez MD [STAFF PHYSICIAN] - As Needed
[2019-08-19] MEDS: predniSONE 20 MG Tablet 60 MG PO (16:38)
[2019-08-19] MEDS: DiphenhydrAMINE 25 MG Capsule 50 MG PO (16:38)
--- NOTE | 2019-08-19 16:52 | ED.RN ---
DISCHARGE INSTRUCTIONS GIVEN TO AND REVIEWED WITH PATIENT, PATIENT DENIES QUESTIONS OR CONCERNS AND VOICES UNDERSTANDING OF DISCHARGE INSTRUCTIONS. PT AMBULATES OUT OF ROOM WITHOUT DIFFICULTY.
== END 2019-08-19 16:52 | disposition home or self-care (01) ==
LOC: ED 16:41
PROVIDERS: Emergency Provider Emergency Medicine
DX: L50.9 Urticaria, unspecified (principal); M79.7 Fibromyalgia
CPT/HCPCS: 99283

== ENCOUNTER → 2019-08-27 16:12 | Outpatient (CLI) | payer MEDICAID, SELFPAY ==
[2019-08-07 10:12] VITALS: BMI 22.4
[2019-08-19 16:20] VITALS: BMI 23.3
--- NOTE | 2019-08-27 16:18 | MRI_ITS ---
STUDY: MRI LEFT KNEE REASON FOR EXAM: Male, 33 years old. The patient presents with a history of Jonh syndrome, complaining of knee pain, inability to weight-bear with swelling, grinding and a popping sensation since July 29, 2019. Evaluate for loose body. TECHNIQUE: Standardized fat and water weighted pulse sequences were obtained in all 3 orthogonal planes. COMPARISON: None. FINDINGS: There is remote bone infarction of the proximal metaphyseal region of the tibia (coronal proton density series 5, image 17; coronal T2 fat sat series 6, image 17). There is an extremely small remote bone infarction of the distal femoral metaphysis (coronal T2 fat sat series 6, image 18). Normal medial meniscus. Normal hyaline cartilage of the medial femorotibial compartment. There is no cartilaginous defect. Normal medial femoral condyle and tibial plateau. Normal medial collateral ligamentous complex (MCL). Normal distal semimembranosus, gracilis and semitendinosus tendons. Normal lateral meniscus. Normal hyaline cartilage of the lateral femorotibial compartment. There is no focal cartilaginous defect. Normal lateral femoral condyle and tibial plateau. Normal proximal tibiofibular articulation. Normal lateral collateral (fibular) ligament. Normal popliteus tendon. Normal biceps femoris tendon. Normal anterior cruciate ligament (ACL). Normal posterior cruciate ligament (PCL). Normal congruent patellofemoral articulation. Normal hyaline cartilage of the patellofemoral compartment. Normal medial and lateral patellar retinaculum. Normal quadriceps tendon. Normal patellar tendon. Normal Hoffa''s fat pad. There is a small volume joint effusion. The soft tissues are unremarkable. MRI/Lower Ext Joint Only (Routine) IMPRESSION: 1. 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 2. No internal knee derangement. 3. No demonstrated articular body. 4. Small volume suprapatella pouch effusion. Electronically Signed: Jos Walker DO at 9:12 EST Tel , Service support ,
== END ==
PROVIDERS: Referring Provider Orthopaedic Surgery; Visit Provider Orthopaedic Surgery
DX: M23.42 Loose body in knee, left knee (principal)
CPT/HCPCS: 73721

== ENCOUNTER 2019-09-17 13:46 | Outpatient (RCR) | payer MEDICAID, SELFPAY ==
[2019-09-06 11:14] VITALS: BMI 23.3
== END 2019-09-17 15:10 | disposition home or self-care (01) ==
LOC: PT 13:46
PROVIDERS: Visit Provider Orthopaedic Surgery
DX: M76.892 Other specified enthesopathies of left lower limb, excluding foot (principal)

== ENCOUNTER 2019-11-18 17:00 | Outpatient (RCR) | payer MEDICAID, SELFPAY ==
[2018-10-30 09:35] VITALS: BMI 21.1
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
--- NOTE | 2019-07-18 10:04 | HP.PTREVAL ---
Renee Felix, ROSEANNE-C, It has been my pleasure to treat ISAI STUART II over the last 5 visits for LOW BACK PAIN,LUMBAR DDD. Please see the progress note below for an update on the physical therapy plan of care! Subjective: Harrison is some better . But pain left knee,muscle spasms right thigh,lumbar pain symmtrical. Patient had change in medication Gabepetin. Change bacoflin. Objective/Function: POSTURE: MILD FOWARD POSTURE. NEURO: C/O PARATHESIA/TINGLING ,ARMS LEGS,CHEST. GAIT: ANTALGIC GAIT. MMT: 4-/5 QUADS/HAMS/HI 4-/5. LUMBAR ROM: FLEXION Plan Plan: CONTINUE WITH AQUATIC POC 2X/WK FOR 4 WEEKS WITH DLS,POSTURAL EX'S,LE FLEXABILITY,STRENGTHENING,GENERAL CONDITIONING Goals Goal 1:: Independant with AQUATIC THERAPY Goal Time Frame: 4-6 Weeks Goal Progress: Progressing Goal 2:: Patient to decrease lumbar pain by 40 % or > to improve QOL. Goal Time Frame: 4-6 Weeks Goal Progress: Progressing Goal 3:: Patient to improve lumbar ROM for function of recovery. Goal Time Frame: 4-6 Weeks Goal 4:: Patient to increase strength by 1/2 grade to improve function Goal Time Frame: 4-6 Weeks Goal Progress: Progressing Goal 5:: Patient improve back owestry score by 5 points or> to improve QOL. Goal Time Frame: 4-6 Weeks Goal Progress: Progressing Anticipated Interventions Patient/Client Instruction: Educate patient on: Condition, Plan of Care For the Purpose of:: To decrease pain, To increase ROM, To improve muscle performance and motor function, To improve ability to perform ADL's, To increase tolerance to activity/condition/position, To improve ability of physical actions for home/community/work/leisure, To improve health of tissue, To decrease soft tissue restriction, To increase flexibility/ROM, To improve ability to perform tasks related to life management Therapeutic Exercise to Include: Strength training, Postural training, Flexibilty training, In an aquatic setting, Active ROM, Dynamic Lumbar Stabilization For the Purpose of:: To decrease pain, To increase ROM, To improve muscle performance and motor function, To improve ability to perform ADL's, To increase tolerance to activity/condition/position, To improve ability of physical actions for home/community/work/leisure, To improve health of tissue, To decrease soft tissue restriction, To increase flexibility/ROM Please do not hesitate to contact me at [phone] by phone or if you have questions or concerns regarding this new plan of care! Sincerely, Oswaldo Glass, PT, Cert MDT, OCS
--- NOTE | 2019-09-17 14:46 | HP.PTREVAL_ITS ---
Renee Felix, ROSEANNE-C, It has been my pleasure to treat ISAI STUART II over the last 9 visits for LOW BACK PAIN,LUMBAR DDD. Please see the progress note below for an update on the physical therapy plan of care! Subjective: Patient wants to cont with PT with lumbar spine. Most recently ,patient developed anterior knee. pain of patella tendon with edema. Patient ent ER Aug 01 , then had MRI was orderd by DR Sy. Intially, used crutches. due to pain. Patient followed up with MD found to be -. Thus Dr Sy recommeded Aquatic PT. Patient has pain with. squatting ,kneeling stairs one step at time. Knee pain /. Pateint has symmtrical lumbar pain and left hip th thight conts to impair bending,lifting . Pain is described as sharp pain. Pain affe trs sleeping. Objective/Function: POSTURE: mild foward posture. GAIT: reciprocal pattern antalgic gait mild foward. NEURO: c/o parathesia legs ,reflexes L3-4,L4-5,L5-S1 1/2. EDEMA: abent. PALAPTION: tender mild patella tendon. + CREPITUS IN KNEE PATELLA. AROM: LEFT SUPINE FLEXION 0-130 DEGREES FLEXION ,RIGHT 0-135 DEGREES. MMT:quads/hams left 4-/5,right 4/5,hip flexion 4-/5,ankle 4/5. LUMBAR ROM : flexion mod loss,extension min loss ,side glides min loss. FLEXABLITY: hams mod tight. -SLR Plan Plan: ADD AQUATICS TO LEFT KNEE TENDONTIES. CONT WITH POC 2XWEEK FOR 4 WEEKS DLS -ABD/BACK,POSTURAL EX'S,LUMBAR ROM,ADDED KNEE ROM/STRENGTHENING EX'S- QUADS/HAMS/HIP Goals Goal 1:: Independant with AQUATIC THERAPY Goal Time Frame: 4-6 Weeks Goal Progress: Progressing Goal 2:: Patient to decrease lumbar pain by 40 % or > to improve QOL. Goal Time Frame: 4-6 Weeks Goal Progress: Progressing Goal 3:: Patient to improve lumbar ROM for function of recovery. Goal Time Frame: 4-6 Weeks Goal 4:: Patient to increase strength by 1/2 grade to improve function Goal Time Frame: 4-6 Weeks Goal Progress: Progressing Goal 5:: Patient improve back owestry score by 5 points or> to improve QOL. Goal Time Frame: 4-6 Weeks Goal Progress: Progressing Goal 6:: Decrease left knee pain by 50% or > to improve gait to ascend/descend stairs alternating. Goal Time Frame: 4-6 Weeks Anticipated Interventions Patient/Client Instruction: Educate patient on: Condition, Plan of Care For the Purpose of:: To decrease pain, To increase ROM, To improve muscle performance and motor function, To improve ability to perform ADL's, To increase tolerance to activity/condition/position, To improve ability of physical actions for home/community/work/leisure, To improve health of tissue, To decrease soft tissue restriction, To increase flexibility/ROM, To improve ability to perform tasks related to life management Therapeutic Exercise to Include: Strength training, Postural training, Flexibilty training, In an aquatic setting, Active ROM, Dynamic Lumbar Stabilization For the Purpose of:: To decrease pain, To increase ROM, To improve muscle performance and motor function, To improve ability to perform ADL's, To increase tolerance to activity/condition/position, To improve ability of physical actions for home/community/work/leisure, To improve health of tissue, To decrease soft tissue restriction, To increase flexibility/ROM Please do not hesitate to contact me at [phone] by phone or if you have questions or concerns regarding this new plan of care! Sincerely, Oswaldo Glass PT, Cert MDT, OCS
--- NOTE | 2019-10-25 15:29 | HP.PTREVAL_ITS ---
Renee Felix, ROSEANNE-C, It has been my pleasure to treat ISAI STUART II over the last 17 visits for LOW BACK PAIN,LUMBAR DDD. Please see the progress note below for an update on the physical therapy plan of care! Subjective: Feeling better overall.. Aquatic ex's are helpng. Inprovemnet with ADL'S.Seen DR Salvador and faye to cont with Aquatic PT Patient. Patient increase gabepetin. Knee can be painfull with stairs less crepitus Objective/Function: POSTURE:MILD FOWARD POSTURE. GAIT: RECIPROCAL PATTERN WITH ANTALGIC GAIT LEFT SIDE. NEURO: C/O PARATHESIA/TINGLING ,REFLEXES L3-4,L4-5,L5-S1 1/3. MMT: QUADS/HAMS 4/5 ,HIP FLEXION 4-/5 .ANKLE 4/5. LUMBAR ROM: FLEXION MIN LOSS,EXTENSION MIN LOSS. AROM: 0-135 DEGREES SUPINE FLEXION. FLEXABILITY: HAMS MOD TIGHT. ABLD WALK ON TOES/HEELS Plan Plan: *AQUATICS TO LEFT KNEE TENDONTIES. CONT WITH POC 2XWEEK FOR 3WEEKS DLS -ABD/BACK,POSTURAL EX'S,LUMBAR ROM,ADDED KNEE ROM/STRENGTHENING EX'S- QUADS/HAMS/HIP Goals Goal 1:: Independant with AQUATIC THERAPY Goal Time Frame: 4-6 Weeks Goal Progress: Progressing Goal 2:: Patient to decrease lumbar pain by 40 % or > to improve QOL. Goal Time Frame: 4-6 Weeks Goal Progress: Progressing Goal 3:: Patient to improve lumbar ROM for function of recovery. Goal Time Frame: 4-6 Weeks Goal 4:: Patient to increase strength by 1/2 grade to improve function Goal Time Frame: 4-6 Weeks Goal Progress: Progressing Goal 5:: Patient improve back owestry score by 5 points or> to improve QOL. Goal Time Frame: 4-6 Weeks Goal Progress: Progressing Goal 6:: Decrease left knee pain by 50% or > to improve gait to ascend/descend stairs alternating. Goal Time Frame: 4-6 Weeks Anticipated Interventions Patient/Client Instruction: Educate patient on: Condition, Plan of Care For the Purpose of:: To decrease pain, To increase ROM, To improve muscle performance and motor function, To improve ability to perform ADL's, To increase tolerance to activity/condition/position, To improve ability of physical actions for home/community/work/leisure, To improve health of tissue, To decrease soft tissue restriction, To increase flexibility/ROM, To improve ability to perform tasks related to life management Therapeutic Exercise to Include: Strength training, Postural training, Flexibilty training, In an aquatic setting, Active ROM, Dynamic Lumbar Stabilization For the Purpose of:: To decrease pain, To increase ROM, To improve muscle performance and motor function, To improve ability to perform ADL's, To increase tolerance to activity/condition/position, To improve ability of physical actions for home/community/work/leisure, To improve health of tissue, To decrease soft tissue restriction, To increase flexibility/ROM Please do not hesitate to contact me at [phone] by phone or if you have questions or concerns regarding this new plan of care! Sincerely, Oswaldo Glass, PT, Cert MDT, OCS
--- NOTE | 2019-11-18 17:31 | HP.PTDCSUM ---
It has been my pleasure to treat ISAI STUART II referred by ZEESHAN Field, with the diagnosis of LOW BACK PAIN,LUMBAR DDD for a total of 23 visit(s). Discharge Date: 11/18/19 Please see the following information for a summary of their discharge status. Subjective: Patient improved ability with strength and stamina. Pain is about same intermittant. Bilateral Back Pain Intensity (Out of 10): 8 Bilateral Lower Extremity Pain Intensity (Out of 10): 8 Left Knee Pain Intensity (Out of 10): 8 R Shldr Pain Intensity (Out of 10): 8 % Improvement: 20 Objective/Function: POSTURE: mild foward. GAIT: antalgic gait. NEURO: C/O PARATHESIA TINGLING ,ARMS LEGS,reflexes L3-4,L4-5,L5-S- 1/3. FLEXABLITY: mod tight hams. MMT: quads/hams 4/5,hip flexion 4-/5,ankle 4/5. LUMBAR ROM: flexion mod loss,ext mod loss,side glides mod loss Goal 1:: Independant with AQUATIC THERAPY Goal Progress: Progressing Goal 2:: Patient to decrease lumbar pain by 40 % or > to improve QOL. Goal Progress: Progressing Goal 3:: Patient to improve lumbar ROM for function of recovery. Goal 4:: Patient to increase strength by 1/2 grade to improve function Goal Progress: Progressing Goal 5:: Patient improve back owestry score by 5 points or> to improve QOL. Goal Progress: Progressing Goal 6:: Decrease left knee pain by 50% or > to improve gait to ascend/descend stairs alternating. Plan: d/c If there are questions or concerns regarding this patient's physical therapy, please feel free to call me at [phone]. Thank you for the referral of this patient. Sincerely, Oswaldo Glass, PT, Cert MDT, OCS
== END 2019-11-18 19:00 | disposition home or self-care (01) ==
LOC: PT 17:00
PROVIDERS: Family Provider Internal Medicine; PCP Internal Medicine; Referring Provider Nurse Practitioner Family; Visit Provider Nurse Practitioner Family
DX: M76.892 Other specified enthesopathies of left lower limb, excluding foot (principal); M54.5 Low back pain; M51.36 Other intervertebral disc degeneration, lumbar region
CPT/HCPCS: 97113; 97162; 97164; 97530

== ENCOUNTER → 2020-03-09 12:25 | Outpatient (CLI) | payer MEDICAID, SELFPAY ==
[2019-09-06 11:14] VITALS: BMI 23.3
== END ==
DX: Z84.81 Family history of carrier of genetic disease (principal)

== ENCOUNTER 2023-07-22 15:47 | Emergency (ER) | payer OTHER, SELFPAY ==
[2023-07-22 15:48] VITALS: BP 149/88; PULSE 99; RESP 16; TEMP 36.2; O2SAT 98; BMI 21.4
--- NOTE | 2023-07-22 16:01 | RAD_ITS ---
STUDY: X-RAY - RIGHT HAND REASON FOR EXAM: Male, 37 years old. finger TECHNIQUE: 3 view(s) of the hand. COMPARISON: None. FINDINGS: Normal radiocarpal articulation. Normal distal radioulnar joint. Normal visualized carpal bones. Normal carpal articulations Normal carpometacarpal articulation of the thumb. Normal second through fifth carpometacarpal joints. Normal metacarpi. Normal metacarpophalangeal joint of the thumb. Normal interphalangeal joint of the thumb. Normal proximal and distal phalanges of the thumb. Normal metacarpophalangeal joints of the second through fifth fingers. Normal proximal and distal interphalangeal joints of the second through fifth fingers. Nondisplaced fracture of the tuft of the third distal phalanx. The soft tissue structures are unremarkable. RAD/Hand Min 3 Views IMPRESSION: Nondisplaced fracture of the tuft of the third distal phalanx. Electronically Signed: Donta Florez MD at 16:34 EST ,
--- NOTE | 2023-07-22 16:03 | EX.ED.DYSGE1 ---
HPI <ZEESHAN Lawton - Last Filed: 07/22/23 17:31> History of Present Illness Chief Complaint: Laceration Narrative Narrative: Patient is a 37-year-old male with history of anxiety, fibromyalgia, Dragan syndrome, presents to the emergency department after an injury to the distal tip of the right third finger. Patient was using a can pest technician, when the right hand was in the way of the pest technician aspect of the machine. Patient states that he immediately did not feel anything then he felt immense pain. Patient states he still has full range of motion however he is concerned that part of the finger is off. He denies any other injury. He is not sure when his last tetanus vaccination was PFSH <ZEESHAN Lawton - Last Filed: 07/22/23 17:31> [facility] Medical History (Updated 07/22/23 @ 17:10 by ZEESHAN Lawton) Dragan's syndrome Medical History no medical history Home Medications gabapentin 100 mg capsule 100 mg PO DAILY 06/02/18 [History Last Taken Unknown] baclofen 20 mg tablet 20 mg PO DAILY 08/02/19 [History Last Taken Unknown] diphenhydramine HCl 25 mg capsule 50 mg (2 x 25 mg) PO BID PRN PRN Rash/Topical Irritation #14 caps 08/19/19 [Rx Last Taken Unknown] cephalexin 500 mg capsule 500 mg PO Q6 7 days #28 CAPSULES 07/22/23 [Rx Last Taken Unknown] oxycodone-acetaminophen 5 mg-325 mg tablet (Percocet) 1 tab PO Q8H PRN pain 3 days #10 tabs 07/22/23 [Rx Last Taken Unknown] Allergy/AdvReac Type Severity Reaction Status Date / Time No Known Allergies Allergy Verified 07/22/23 15:49 Social History (Updated 09/06/19 @ 11:[address] Sánchez Sy, ) Smoking Status: Former smoker ROS <ZEESHAN Lawton - Last Filed: 07/22/23 17:31> ROS ED ROS Narrative Constitutional: Negative for fever, chills, weight loss, weakness Eyes: Negative for vision loss, vision change, double vision ENT: Negative for any sore throat, ear pain, congestion Cardiovascular: Negative for any chest pain, tightness, palpitations Respiratory: Negative for any cough, sputum production, hemoptysis, dyspnea, dyspnea on exertion, orthopnea Gastrointestinal: Negative for any abdominal pain, nausea, vomiting, diarrhea, constipation, blood in stool, blood in vomit : Negative for any urinary frequency, dysuria, retention, blood in urine Muscle skeletal: Negative for any myalgias, arthralgias, neck pain, back pain. Positive for right third finger pain, right third finger laceration Neurological: Negative for any headache, syncope, paresthesias, dizziness Skin: Negative for any rashes, lumps, itching, abrasions, lacerations Psychiatric: Negative for any depression, anxiety, stress, suicidal ideation, homicidal ideation Hematologic: Negative for any easy bruising, excessive bruising, easy bleeding Allergies: Negative for any eczema, hives, rash EXAM <ZEESHAN Lawton - Last Filed: 07/22/23 17:31> Physical Exam Narrative Exam Narrative: Vital signs reviewed. HEET: Head normocephalic atraumatic, TMs clear bilaterally. Posterior pharynx is clear, moist mucous membranes. Nares clear bilaterally. Neck: Supple with no lymphadenopathy or tenderness. No signs of meningismus. Cardiac: Regular rate and rhythm no murmurs gallops or rubs, equal peripheral pulses bilaterally. Respiratory: Lungs clear to auscultation bilaterally. No chest tenderness. Abdomen: Soft, nontender, nondistended. No abdominal bruit or pulsatile masses. No hepatosplenomegaly Extremities: Patient has obvious trauma to the right third finger. There is a 1 cm laceration to the medial aspect of the distal right third finger above the DIP joint. This wraps around the distal tip of the nail with the tip of the finger is disconnected. Patient has full sensation, significant amount of pain on palpation. The nailbed is intact. There is no exposed bone. Neuro: Cranial nerves II through XII intact, no focal neurological deficits. Skin: Clean dry and intact with no rash, purpura, petechiae, vesicles or pustules. Backs/flank: No CVA tenderness, no midline spinal tenderness, no deformity. Psych: Normal mood and affect. No SI, HI or acute psychosis. Const Vital Signs: 07/22/23 15:48 Temperature 97.2 F L Temperature Source Temporal Pulse Rate 99 Respiratory Rate 16 Blood Pressure 149/88 H Blood Pressure Mean 108 Pulse Ox 98 Oxygen Delivery Method Room Air Positive well nourished and well developed General Appearance ED: well developed <Dr. Nick Quigley DO - Last Filed: 07/22/23 17:29> Physical Exam Const Vital Signs: 07/22/23 15:48 Temperature 97.2 F L Temperature Source Temporal Pulse Rate 99 Respiratory Rate 16 Blood Pressure 149/88 H Blood Pressure Mean 108 Pulse Ox 98 Oxygen Delivery Method Room Air MDM <PATRICK LawtonC - Last Filed: 07/22/23 17:31> MDM Lab Data Labs: Laboratory Results - last 24 hr 07/22/23 16:21 WBC 10.7 RBC 4.57 L Hgb 13.9 Hct 41.9 MCV 91.7 MCH 30.4 MCHC 33.2 RDW Std Deviation 43.8 RDW Coeff of Araceli 12.9 Plt Count 243 MPV 10.2 Immature Gran % (Auto) 0.400 Neut % (Auto) 62.3 Lymph % (Auto) 27.0 Ransom % (Auto) 7.1 Eos % (Auto) 1.8 Baso % (Auto) 1.4 H Absolute Neuts (auto) 6.7 Absolute Lymphs (auto) 2.90 Nucleated RBC % 0 Differential Comment SCANNED Radiography Diagnostic Testing: Clinical Impression(s) from Imaging Studies Hand X-Ray 07/22/23 16:01 IMPRESSION: Nondisplaced fracture of the tuft of the third distal phalanx. Electronically Signed: Donta Florez MD at 16:34 EST , Treatment and Re-Evaluation :: Pt Appears to be in no obvious respiratory distress vital signs are stable. Patient presenting to the emergency department for injury to the right third finger. Differential diagnose includes finger laceration, open fracture, tuft fracture. Patient did receive x-rays of the right third finger that showed a nondisplaced fracture to the tuft of the third distal phalanx. This would be considered an open fracture. Patient was given 1 g of IV Ancef, will be placed on Keflex 4 times a day for a week. This wound was irrigated copiously. Unable to digital block of the right third finger with lidocaine, patient tolerated well. I did place 3 simple interrupted sutures of 4-0 Ethilon along the medial aspect of the distal finger, nailbed. I was able to use Vicryl 5?0 to the nailbed for total of 5 sutures, laceration of the nailbed was 1 cm. Patient will need to follow-up with orthopedics. Tetanus vaccination was updated today. Patient will be given a prescription for Percocet, he will be given copy of his CBC, this was important to him secondary to his past medical history. It was unremarkable. Patient instructed to follow-up outpatient, all questions answered, he was placed in an aluminum finger splint as well as dressing change and care instructions. Stable for discharge <Dr. Nick Quigley, DO - Last Filed: 07/22/23 17:29> [facility] Narrative Medical decision making narrative: I have personally performed a face to face assessment of the patient and have reviewed the JACKIE Note. I performed a substantive portion of the visit including all aspects of the following. My arreola findings include: History: Patient presents with injury to his right middle finger that occurred today. Patient states he got his finger caught in a can pest technician. Patient is unsure of his last tetanus. Patient states his pain is sharp and burning. Patient states it is worse with movement. Patient states it is better with cold to the finger. Patient admits to some tingling into his finger. Patient denies any weakness. Exam: Vital signs are stable. Patient is afebrile. Patient is in no acute distress. Musculoskeletal exam reveals tenderness over the distal phalanx of the right middle finger. There is a laceration to the nailbed. There is mild gapping of the wound margins. There is no foreign body noted. Sensation was intact to light touch in all digits. Capillary refill was less than 2 seconds in all digits. There is good flexion extension of the MP, PIP, and DIP joints. Medical Decision Making: Differential diagnosis includes open fracture, laceration, and crush injury. X-rays of the right middle finger will be obtained to assess for fracture. 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 This was ordered. Patient was given a dose of Ancef here. Patient was given tetanus booster. Patient was given a dose of Percocet here. The laceration was repaired by the JACKIE under my supervision. Patient tolerated the procedure well. CBC was reviewed and was within normal limits. Patient was instructed to keep the wound clean and dry. Patient is given a prescription for Keflex. Patient was instructed to follow-up with his primary care physician in 5 to 7 days for wound recheck. Patient understood and was agreeable with the plan. All questions were answered. Lab Data Labs: Laboratory Results - last 24 hr 07/22/23 16:21 WBC 10.7 RBC 4.57 L Hgb 13.9 Hct 41.9 MCV 91.7 MCH 30.4 MCHC 33.2 RDW Std Deviation 43.8 RDW Coeff of Araceli 12.9 Plt Count 243 MPV 10.2 Immature Gran % (Auto) 0.400 Neut % (Auto) 62.3 Lymph % (Auto) 27.0 Ransom % (Auto) 7.1 Eos % (Auto) 1.8 Baso % (Auto) 1.4 H Absolute Neuts (auto) 6.7 Absolute Lymphs (auto) 2.90 Nucleated RBC % 0 Differential Comment SCANNED Radiography Diagnostic Testing: Clinical Impression(s) from Imaging Studies Hand X-Ray 07/22/23 16:01 IMPRESSION: Nondisplaced fracture of the tuft of the third distal phalanx. Electronically Signed: Donta Florez MD at 16:34 EST , X-rays of the right hand were obtained. There are 3 views. On my independent interpretation, there is a nondisplaced fracture of the tuft of the distal phalanx of the right third finger. There are no foreign bodies noted. Radiologist also interpreted the x-rays and agrees. Discharge Plan Triage Chief Complaint: Laceration ED Midlevel Provider: Rubin Lantigua ED Provider: Nick Quigley Dx/Rx/DC Orders Clinical Impression: Open fracture of tuft of distal phalanx of finger, Finger laceration Instructions: ED Fracture, Finger, Open, ED Laceration Extremity Prescriptions: New cephalexin 500 mg capsule 500 mg PO Q6 7 Days Qty: 28 0RF oxycodone-acetaminophen [Percocet] 5-325 mg tablet 1 tab PO Q8H PRN (Reason: pain) 3 Days Qty: 10 0RF No Action gabapentin 100 MG capsule 100 mg PO DAILY Patient Comments: TAKE ONE CAPSULE BY MOUTH THREE TIMES DAILY baclofen 20 MG tablet 20 mg PO DAILY diphenhydramine HCl 25 MG capsule 50 mg PO BID PRN PRN (Reason: Rash/Topical Irritation) Qty: 14 0RF Primary Care Provider: Care Physician,No Primary Referrals: Ilya Spencer MD [Med Staff - Active Staff] - Care Physician,No Primary [Primary Care Provider] - Disposition Disposition: Home, Self Care
[2023-07-22] MEDS: Diphth,Pertuss(Acell),Tet Vac 0.5 ML Vial IM (16:10)
[2023-07-22] MEDS: Oxycodone/Apap 5/325 Tablet PO (16:11)
[2023-07-22] MEDS: Lidocaine 1% (20 ml mdv) 20 ML Vial INFILT (16:11)
[2023-07-22 16:27] LABS: Absolute Neutrophil Count 6.7 X10^3/uL (2.0-7.7); Basophil# 0.15 X10^3/uL; Basophil% 1.4 % (0-1); Eosinophil# 0.19 X10^3/uL; Eosinophils% 1.8 % (0-5); Hematocrit 41.9 % (40-54); Hemoglobin 13.9 g/dL (13.0-16.5); Mean Corp Hgb Conc 33.2 g/dL (32-36); Mean Corpuscular Hgb 30.4 pg (27.0-32.0); Mean Corpuscular Volume 91.7 fL (80-94); Mean Platelet Vol. 10.2 fl (6.2-12.0); Monocyte# 0.76 X10^3/uL; Monocyte% 7.1 % (0-10); NRBC Flagged by Analyzer 0 % (0-5); Neutrophil # 6.69 X10^3/uL (2.7-7.7); Neutrophil % 62.3 % (47-70); POSITIVE MORPHOLOGY YES; Platelet Count 243 K/mm3 (150-450); RBC Distribution Width CV 12.9 % (11.6-14.6); RBC Distribution Width SD 43.8 fl (35.1-43.9); Red Blood Count 4.57 M/mm3 (4.6-6.2); White Blood Count 10.7 K/mm3 (4.4-11.0)
[2023-07-22 16:29] LABS: Differential Indicated SCAN CRITERIA MET
--- OUTSIDE RECORDS SUMMARY | 2023-07-22 16:32 | XMS RPT_ITS | CCD ---
Author Name Unknown Address [address] [place] [address] Organization [facility] Care Team Providers Care Food Prep Worker Name Role Phone KLEVER FERNANDEZ Unavailable Unavailable BRUNA ANDERSON Unavailable Unavailable Ed Thomas Unavailable Unavailable KLEVER FERNANDEZ Unavailable Unavailable Ed Thomas Unavailable Unavailable KLEVER FERNANDEZ Unavailable Unavailable BRUNA ANDERSON ([place]) Unavailable Unavailable KLEVER FERNANDEZ Unavailable Unavailable HSANA MOREAU Unavailable Unavailable SHANA MOREAU Unavailable Unavailable Problems Active Problems Problem Classification Problem Date Documented Date Episodic/Chronic Biliary tract disease (1 source) Calculus of gallbladder without cholecystitis without obstruction; Translations: [Calculus of gallbladder without cholecystitis without obstruction] Onset: 11-08-2017 Episodic Coagulation and hemorrhagic disorders (1 source) John syndrome; 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] Onset: 11-08-2017 Chronic Esophageal disorders (1 source) Gastro-esophageal reflux disease with esophagitis; Translations: [Gastro-esophageal reflux disease with esophagitis] Onset: 11-08-2017 Chronic Other nervous system disorders (1 source) Other chronic pain; Translations: [Other chronic pain] Onset: 11-08-2017 Chronic Unclassified (1 source) Unknown / UNK(Unknown) Onset: 11-08-2017 Past or Other Problems Problem Classification Problem Date Documented Da te Episodic/Chronic Abdominal pain (4 sources) Right upper quadrant pain; Translations: [Right upper quadrant pain] Onset: 08-15-2017 Episodic Results Test Name Value Interpretation Reference Range Facil ity Encounters Encounter Date Encounter Type Care Provider Facility Start: 11-21-2017 Ambulatory KLEVER FERNANDEZ Facilit y:[facility] Start: 11-08-2017 End: 11-08-2017 Ambulatory KLEVER FERNANDEZ Facility:[facility] Start: 08-23-2017 End: 08-23-2017 Ambulatory SHANA T [facility] Payers Date Payer Category Payer Policy ID Medicaid [id number] Summary Purpose Family History No Family History Records FoundNo Family History Records FoundNo Family History Records Found Advance Directives No Advanced Directives Records FoundNo Advanced Directives Records FoundNo Advanced Directives Records Found Additional Source Comments (unrecognized sect ion and content) No Status Records FoundNo Status Records FoundNo Status Records Found INFORMATION SOURCE (unrecogn ized section and content) DATE CREATED AUTHOR AUTHOR'S ORGANIZ ATION 12/27/2017 [facility] DATE CREATED AUTHOR AUTHOR'S ORGANIZ ATION 12/29/2017 [facility] FOR RECORDS PERTAINING TO PATIENTS WHO ARE OR HAVE BEEN ENROLLED IN A CHEMICAL DEPENDENCY/SUBSTANCEABUSE PROGRAM, SOME INFORMATION MAY BE OMITTED. This clinical summary was aggregated from multiple sources. Caution should be exercised in using it in the provision of clinical care. This summary normalizes information from multiple sources, and as a consequence, information in this document may materially change the coding, format and clinical context of patient data. In addition, data may be omitted in some cases. CLINICAL DECISIONS SHOULD BE BASED ON THE PRIMARY CLINICAL RECORDS. [facility] [facility]. provides no warranty or guarantee of the accuracy or completeness of information in this document.
[2023-07-22] MEDS: Cefazolin 1 GM/50 ML BAG IV (16:52)
[2023-07-22 17:20] LABS: Differential Comment SCANNED
== END 2023-07-22 18:00 | disposition home or self-care (01) ==
PROVIDERS: Nurse Practitioner; Emergency Provider Emergency Medicine; Visit Provider Emergency Medicine
DX: S62.632B Displaced fracture of distal phalanx of right middle finger, initial encounter for open fracture (principal); Z87.891 Personal history of nicotine dependence; Z23 Encounter for immunization; X58.XXXA Exposure to other specified factors, initial encounter
CPT/HCPCS: 12001; 73130; 85025; 90471; 90715; 96365; 99285; J7030; J7050; A4216

== ENCOUNTER → 2023-09-29 | Outpatient (CLI) | payer OTHER, SELFPAY ==
[2023-09-29 10:23] LABS: Absolute Lymphocyte Count 2.15 X10^3/uL (0.83-4.51); Absolute Neutrophil Count 5.5 X10^3/uL (2.0-7.7); Basophil# 0.13 X10^3/uL; Basophil% 1.5 % (0-1); Eosinophil# 0.26 X10^3/uL; Eosinophils% 2.9 % (0-5); Hematocrit 43.3 % (40-54); Hemoglobin 13.6 g/dL (13.0-16.5); Lymphocyte # 2.15 X10^3/ul (0.83-4.51); Lymphocyte % 24.3 % (19-41); Mean Corp Hgb Conc 31.4 g/dL (32-36); Mean Corpuscular Hgb 28.6 pg (27.0-32.0); Mean Corpuscular Volume 91.2 fL (80-94); Mean Platelet Vol. 11.2 fl (6.2-12.0); Monocyte# 0.73 X10^3/uL; Monocyte% 8.2 % (0-10); NRBC Flagged by Analyzer 0 % (0-5); Neutrophil # 5.53 X10^3/uL (2.7-7.7); Neutrophil % 62.5 % (47-70); Platelet Count 284 K/mm3 (150-450); RBC Distribution Width CV 13.2 % (11.6-14.6); RBC Distribution Width SD 44.2 fl (35.1-43.9); Red Blood Count 4.75 M/mm3 (4.6-6.2); White Blood Count 8.9 K/mm3 (4.4-11.0)
[2023-09-29 11:47] LABS: ALB/GLOB Ratio 1.3 RATIO (0.9-2.4); AST(SGOT) 101 U/L (15-37); Alanine Aminotransfer ALT/SGPT 158 U/L (16-61); Albumin, Serum 3.9 g/dL (3.2-5.0); Alkaline Phosphatase 73 U/L (45-117); Anion Gap 6 (5-15); BUN 18 mg/dL (7-18); BUN/Creat Ratio 14.6 RATIO (10-20); Calcium,Total 8.9 mg/dL (8.5-10.1); Chloride 105 mmol/L (98-107); Cholesterol 183 mg/dL (200); Creatinine, Serum 1.23 mg/dL (0.70-1.30); EST Glomerular Filtration Rate 70 mL/min (>60); Est Glom Filt Rate - Afr Amer 85 mL/min (>60); Glucose 107 mg/dL (74-106); High Density Lipoprotein 65 mg/dL; Potassium 4.3 mmol/L (3.5-5.1); Protein, Total 6.9 g/dL (6.4-8.2); Sodium Level 139 mmol/L (136-145); Thyroid Stim Hormone (TSH) 1.17 uIU/mL (0.358-3.74); Triglycerides 67 mg/dL; Very Low Density Lipoprotein 13 mg/dL (5-40)
== END | disposition home or self-care (01) ==
LOC: MFPLAB 09:13
PROVIDERS: Visit Provider Family Medicine
DX: Z00.00 Encounter for general adult medical examination without abnormal findings (principal); D69.41 Evans syndrome
CPT/HCPCS: 36415; 80053; 80061; 84403; 84443; 85025

== ENCOUNTER → 2023-12-29 | Outpatient (CLI) | payer OTHER, SELFPAY ==
[2023-12-29 18:11] LABS: ALB/GLOB Ratio 1.4 RATIO (0.9-2.4); AST(SGOT) 28 U/L (15-37); Alanine Aminotransfer ALT/SGPT 35 U/L (16-61); Albumin, Serum 3.9 g/dL (3.2-5.0); Alkaline Phosphatase 70 U/L (45-117); Anion Gap 7 (5-15); BUN 18 mg/dL (7-18); BUN/Creat Ratio 18.3 RATIO (10-20); Chloride 107 mmol/L (98-107); Creatinine, Serum 0.99 mg/dL (0.70-1.30); EST Glomerular Filtration Rate 90 mL/min (>60); Est Glom Filt Rate - Afr Amer 109 mL/min (>60); Globulin 2.8 g/dL (2.2-4.2); Glucose 105 mg/dL (74-106); Potassium 4.2 mmol/L (3.5-5.1); Protein, Total 6.7 g/dL (6.4-8.2); Sodium Level 141 mmol/L (136-145)
== END | disposition home or self-care (01) ==
LOC: MFPLAB 16:24
PROVIDERS: PCP Family Medicine; Visit Provider Family Medicine
DX: R74.8 Abnormal levels of other serum enzymes (principal)
CPT/HCPCS: 36415; 80053